=== PATIENT | male | born 1945 | race Caucasian/White ===

== ENCOUNTER 2017-12-28 22:24 | Inpatient (IN) | payer MEDICARE, BC ==
[~2017-12-28 22:24] MED LIST: Glycopyrrolate 0.2 MG/ML 5 ML SYRINGE ONE; Lidocaine 1% PF 5 ML VIAL ONE; PHENYLEPHRINE-NS 100 MCG/ML 10 ML SYRINGE ONE; PROPOFOL 200 MG/20 ML VIAL ONE; Succinylcholine Chloride 20 MG/ML 10 ml SYRINGE FS ONE
--- NOTE | 2017-12-28 22:39 | CT ---
CT HEAD NONCONTRAST 12/28/17 INDICATION: New onset left side weakness. No prior comparison. FINDINGS: There is a moderate sized chronic infarction of the posterior division right MCA. There is a hyperden se right MCA with focal calcification. No hemorrhage, mass effect, midline shift, or ventriculomegaly is seen. There is mild chronic microvascular ischemic disease of the cerebral white matter. IMPRESSION: 1. 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 2. Hyperdense right MCA. 3. Mild chronic microvascular ischemic disease. 4. Telephone call placed to ER physician, Placido Méndez, at 2230 hours, 12/28/17. Code CR POS: [id number]
[2017-12-28 22:40] LABS: #Basophils 0.1 thou/uL (0.0-0.2); #Eosinphils 0.1 thou/uL (0.0-0.7); #Lymphocytes 2.1 thou/uL (1.20-3.40); #Monocytes 0.8 thou/uL (0.11-0.59); %Basophils 0.9 % (0.0-1.0); %Eosinophils 1.5 % (0.0-10.0); %Lymphocytes 26.2 % (21.0-51.0); %Monocytes 9.4 % (0.0-10.0); Mean Corpuscular HGB CONC 33.7 g/dL (32.0-36.0); Mean Corpuscular Hemoglobin 31.9 pg (27.0-31.0); Mean Corpuscular Volume 94.7 fl (80.0-94.0); Mean Platelet Volume 8.1 fL (7.4-10.4); Platelet Count 236 thou/uL (130-400); RBC Distribution Width 11.7 % (11.5-14.5); Red Blood Cell (RBC) Count 4.69 mill/uL (4.70-6.10); White Blood Cell (WBC) Count 8.1 thou/uL (4.8-10.8)
[2017-12-28 22:46] LABS: INR-International Normal Ratio 1.1; PTT 28.5 SEC (22.9-36.1); Prothrombin Time 13.9 SEC (12.0-14.7)
[2017-12-28 22:54] LABS: ALT (SGPT) 13 U/L (8-55); AST (SGOT) 16 U/L (5-34); Albumin 3.8 g/dL (3.4-4.8); Alkaline Phosphatase 80 U/L (40-150); Anion Gap 12 mmol/L (10-20); BUN (Urea Nitrogen) 21 mg/dL (8.4-25.7); Bilirubin, Total 0.5 mg/dL (0.2-1.2); Calc. Creatinine Clearance 0 mL/min (70-130); Calcium 9.9 mg/dL (7.8-10.44); Carbon Dioxide 25 mmol/L (23-31); Chloride 105 mmol/L (98-107); Estimated GFR-MDRD 68; Globulin 2.5 g/dL (2.4-3.5); Glucose 109 mg/dL (80-115); Protein, Total 6.3 g/dL (5.8-8.1); Sodium 138 mmol/L (136-145)
[2017-12-28 22:59] LABS: CKMB 0.9 ng/mL (0-6.6); Troponin I Less than 0.010 ng/mL (< 0.028)
--- NOTE | 2017-12-28 23:08 | CT ---
CTA NECK WITH 3D VOLUME RENDERING CTA HEAD WITH 3D VOLUME RENDERING CTA BRAIN PERFUSION 12/28/17 INDICATION: Left sided weakness. FINDINGS: There is heterogeneity of the contrast bolus. The aortic arch is patent. The great vessels that emana te from the aortic arch are patent. No high grade stenosis of the bilateral subclavian arteries altho ugh there is limited assessment of the left subclavian artery by the adjacent high density streak art ifact from venous contrast. The bilateral common carotid arteries reveal no high grade focal stenosis . There is calcification at the distal left common carotid artery and at the level of each carotid bu lb without significant stenosis. Each cervical ICA is patent. The bilateral terminal carotid arteries reveal peripherally located calcification. There is abruption termination of the proximal aspect of the right MCA with absence of contrast from the level of the M1 segment distally. This does result in diffuse reduced contrast density of the MCA distal cerebral branches. No high grade stenosis of eith er MARIANELA. Region of anterior communicating artery is unremarkable. There is no high grade focal stenos is of the left MCA. There is mild focal narrowing without obvious calcification at the proximal left M1 segment. Small caliber bilateral BUTTER PRODUCTION SUPERVISOR are grossly patent. No high grade stenosis or occlusion of ei ther vertebral artery. Basilar artery is patent. Evaluation of CTA brain perfusion reveals a large region of diminished blood flow, as well as elevate d mean transit time throughout majority of the right cerebral hemisphere. There is preserved blood vo lume within portions of the anterior and posterior division of the right MCA territory, compatible wi th penumbra. IMPRESSION: Occlusion of the right middle cerebral artery, with CTA brain perfusion findings of a penumbra involv ing right MCA territory. Noncontrast CT exam does reveal an area of encephalomalacia localizing to th e posterior division right MCA territory. There are findings of preserved blood volume within the robbie rounding right cerebral hemisphere. Telephone call of findings placed to neurosurgeon, Evaristo Sanchez, at 2245 hours as well as the ER physic Placido lacey. Code CR POS: [facility]
[2017-12-28] MEDS ORDERED: Heparin 10,000 UNITS/1 ML VIAL ONE (23:17)
[2017-12-28] MEDS ORDERED: Fentanyl 100 MCG/2 ML VIAL ONE ×2 (23:32→23:39)
[2017-12-29] MEDS ORDERED: PHENYLEPHRINE-NS 100 MCG/ML 10 ML SYRINGE ONE (00:15)
[2017-12-29] MEDS ORDERED: Phenylephrine HCL 10 MG/ML VIAL ONE (00:16)
[2017-12-29] MEDS ORDERED: niCARdipine 20MG in NaCl 200 ML BAG IVPB PRN (00:25)
[2017-12-29] MEDS ORDERED: Acetaminophen 650 MG Suppository PR PRN (00:25)
[2017-12-29] MEDS ORDERED: Bisacodyl 10 MG SUPP PR PRN (00:25)
[2017-12-29] MEDS ORDERED: Labetalol HCl 100 MG/20 ML VIAL SLOW IVP PRN (00:25)
[2017-12-29] MEDS ORDERED: niCARdipine HCl 25 MG in Sodium Chloride 0.9% 250 ML 240 ML IVPB PRN (00:35)
[2017-12-29] MEDS: Sodium Chloride 0.9% 1,000 ML IV SCH ×2 (01:00→11:24)
[2017-12-29 04:49] LABS: Cardiac Risk 2.8 (Less than 4.5)
--- NOTE | 2017-12-29 06:53 | PRG ---
DATE OF SERVICE: 12/28/17 Mr. Carreno is a 72-year-old gentleman that presented with abrupt onset hemiplegia and dysarthria. He presented to the ER at [facility] where a noncontrast head CT was performed, which was negative for hemorrhage. Subsequent to that time, he had a CT angiogram performed which revealed the presence of thrombus within the right M1 branch of the middle cerebral artery without any evidence for distal filling. He had a CT perfusion study which suggested a large area of penumbra. I had a conversation with the ER doctor and we agreed to administer tPA. The plan is also to bring him back to the construction or leak gang laborer now and perform angiography with mechanical thrombectomy. I had a discussion with the patient's and son and discussed with them the risks, benefits, and alternatives to this procedure. I answered their questions and I believe they were of sound mind and able to provide informed consent. ANÍBAL
--- NOTE | 2017-12-29 07:54 | CT ---
PRELIMINARY REPORT/[facility]/EMERGENCY AFTER HOURS PROCEDURE: Addendum created by Johann Dejesus MD on 12/29/2017 5:51 AM Central Time ([place] & [place]) THIS REPORT CONTAINS FINDINGS THAT MAY BE CRITICAL TO PATIENT CARE. The findings were verbally commun icated via telephone conference with ANGELES PÉREZ at 5:50 AM UPSET OPERATOR on 12/29/2017. The findings were ackn owledged and understood. Initial Report created on 12/29/2017 5:45 AM Central Time ([place] & [place]) EXAM: CT Head Without Intravenous Contrast CLINICAL HISTORY: 72 years old, male; Signs and symptoms; Other: F/u CVA clot removal; Prior surgery; Surgery date: Pos t-operative (0-2 days); Patient HX: Cta br done prior to scanning; Additional info: This is f/u CVA S /P clot removal; Pt had contrast prior for ctabr TECHNIQUE: Axial computed tomography images of the head/brain without intravenous contrast. All CT scans at this facility use one or more dose reduction techniques, viz.: automated exposure control; ma/kV adjustme nt per patient size (including targeted exams where dose is matched to indication; i.e. head); or ite rative reconstruction technique. COMPARISON: CT Brain WO Con 2017-12-28 22:28 FINDINGS: Diffuse cerebral volume loss. Right posterior temporal lobe encephalomalacia. Interval development of hypodensity in the right insula, right anterior inferior frontal lobe and rig ht anterior and mid temporal lobe parenchyma. No intracranial hemorrhage, midline shift or hydrocephalus. Result cisterns are without effacement. Slight asymmetric hyperdensity of the right MCA, unchanged. Atherosclerosis of the intracranial vasculature. Orbits are unremarkable. Paranasal sinuses are clear. Mastoid air cells are clear. Mandibular periapical lucency. No acute fracture. Extra calvarial soft tissues unremarkable. IMPRESSION: Interval development of hypodensities in the right MCA territory as described above most suspicious f or acute ischemia. Thank you for allowing us to participate in the care of your patient. Dictated and Authenticated by: Johann Dejesus MD 12/29/2017 5:45 AM Central Time ([place] & [place]) FINAL REPORT CT HEAD NONCONTRAST: DATE: 12/29/17. TIME: Performed on an emergency basis at 0506 hours. HISTORY: Acute right MCA embolus with clot removal. Followup. FINDINGS: Findings agree with the preliminary report from [facility]. Hyperdense clot within the right MCA is no longer apparent. Subtle loss of casey-white differentiation in the right frontal and tempor al lobes suggests developing ischemia/infarct. POS: CARMELA
--- NOTE | 2017-12-29 13:50 | CON ---
DATE OF CONSULTATION: 12/29/2017 CHIEF COMPLAINT: Acute stroke. HISTORY OF PRESENT ILLNESS: History was obtained both from family and the chart. The patient was in his usual state of health until yesterday afternoon when he developed sudden onset of slurred speech and his stroke-like symptoms began at 2155. He was walking to the restroom and he had sudden onset of left-sided weakness with slurred speech. He did not have any prior difficulties and there is no h istory of any vision problems or sensory symptoms. No seizures were found. The patient was taken to the cath lab tech due to his NIH stroke scale of 26. He had left hemineglect, left facial droop, complet e left upper and lower arm paralysis, and following that, he was taken to the cardiac cath lab tech for in traarterial procedure, and his intraarterial procedure was completed yesterday and the patient has re mained stable overnight, and he is currently in the ICU. His angiogram report was and the patient al so had an head and neck CTA with brain perfusion, which showed occlusion of the right MCA and with CT A perfusion findings of penumbra in the right MCA territory. Dr. Sanchez had completed the procedure, and following the procedure, he was placed in the ICU. PAST MEDICAL HISTORY: The patient has had coronary artery bypass graft and he has coronary artery di sease and hypertension. He also has diabetes. ALLERGIES: No known drug allergies. MEDICATIONS: Prior to admission, he was on Plavix, metformin, Jardiance, atorvastatin, hydrochloroth iazide, glipizide, isosorbide mononitrate, lisinopril, Coreg, and Slo-Niacin. FAMILY HISTORY: Positive for stroke in his mother and coronary artery disease in both parents. SOCIAL HISTORY: Nonsmoker, occasional alcohol. Lives with his family. LABORATORY RESULTS: White count 8.1, hemoglobin 15.0, hematocrit 44.4, platelets 236, sodium 138, po tassium 4.0, chloride 105, bicarbonate 25, BUN 21, creatinine 1.08, AST 16, ALT 13, alkaline phosphat ase 80. Cholesterol 90, triglycerides 44, LDL 49, HDL 32. PT 13.9, INR 1.1, PTT 28.5. CT angiograp hy performed on 12/28/2017 shows occlusion of the right middle cerebral artery with the right CTA bra in perfusion findings of penumbra involving the right MCA territory and noncontrast CT exam does reve al an area of encephalomalacia localizing to the posterior division of the right MCA territory and th ere were findings of preserved blood volume within the surrounding right cerebral hemisphere. PHYSICAL EXAMINATION: VITAL SIGNS: Blood pressure 147/62, heart rate 77, respiratory rate 20, O2 sats 94. GENERAL APPEARANCE: Well-built, well-nourished gentleman, who is lying in bed. HEENT: He has left hemineglect and eyes are deviated to the right in resting position. CHEST: Clear vesicular breathing. CARDIOVASCULAR: S1, S2 heard, no murmurs. ABDOMEN: Soft, nontender. No organomegaly noted. NEUROLOGIC: Higher intellectual functions: Oriented to time, place, person. Cranial nerves II-XII. Fundus examination: Normal visual ojeda. Normal extraocular movements. Resting eye deviation to the right, but extraocular movements are preserved and he is able to cross midline to look to the le ft. Sensory exam: Normal sensation of face bilaterally. Cranial nerve VII: Mild left facial droop and normal hearing bilaterally to finger rub. Normal elevation of palate. Tongue midline. Motor e xam: Bulk normal, tone decreased on the left side. Strength 5/5 on the right side. On the left wilton e, he is able to elevate his left arm against gravity and strength is about 3/5. Left lower extremit y strength is about 3/5 proximal, distal 4/5. Muscle groups tested are iliopsoas, hamstrings, venkata ceps, ankle dorsiflexion, plantar flexion, deltoid, biceps, triceps, wrist extension and flexion, fin dolly extension and flexion bilaterally. Deep tendon reflexes are absent. Sensory normal touch temper ature on the right side. There is hemineglect on the left side and difficult to assess sensation on the left. Cerebellar exam: Normal finger to nose and he cannot perform heel to bourgeois on the right le g due to presence of sheath following his angiogram procedure yesterday. His has some impairment of cerebellar function in the left upper extremity. ASSESSMENT AND PLAN: The patient is a 72-year-old man with risk factors of coronary artery disease, diabetes, hypertension, and she has had a right middle cerebral artery embolic event and he had intra arterial procedure yesterday for this ischemic events due to a NIH stroke scale of 26. Since the pro cedure, he has had a new improvement in his neurological status and his examination shows gaze deviat ion to the right, left face, arm and leg weakness with the left arm weakness at 3/5 and left lower ex tremity weakness 3/5 proximal, distal 4/5. At this time, diagnosis is most consistent with ischemic cerebrovascular accident likely possibilitie s are cardioembolic event. RECOMMENDATIONS: 1. I agree with the addition of aspirin along with Plavix for stroke prophylaxis. 2. Obtain MRI when patient is more stable. 3. Follow acute stroke and TPA protocol and maintain cerebral perfusion pressures and therefore inve stigate cardiac status particularly for any possibility for embolic source. 4. I will have one of our Neurology colleagues to continue to follow up on this patient. 5. Please call me if you have any change in neurological status.
[2017-12-29] MEDS ORDERED: Dextrose 5% in Water 1,000 ML IV PRN (14:11)
[2017-12-29] MEDS ORDERED: HumaLOG 300 UNITS/3 ML VIAL SC PRN (14:11)
[2017-12-29] MEDS ORDERED: Dextrose 50% Abboject 50 ML SYRINGE SLOW IVP PRN (14:11)
--- NOTE | 2017-12-29 14:50 | CON ---
DATE OF CONSULTATION: 12/29/2017 HISTORY OF PRESENT ILLNESS: Mr. Carreno is a 72-year-old male was sleeping on the couch last night. His noticed that he was trying to speak and was unable to. He presented to the emergency room. He had TPA and then a VIVIANE procedure. CT this morning shows a right insular hypodensity in the right anterior frontal lobe, anterior mid temporal lobe parenchyma, hyperdense clot that was seen on the previous imaging study and the right middle cerebral artery is no longer apparent. He is able to verbalize. He started to move his left side. PAST MEDICAL HISTORY: Remarkable for, 1. Bypass surgery. His says probably 17 years ago. 2. History of lipid disorder, on lipid medication. FAMILY HISTORY: Negative for lung disease at an early age. SOCIAL HISTORY: He is a nonsmoker. ALLERGIES: He has no known drug allergies. REVIEW OF SYSTEMS: 10 point system review otherwise negative. He denies pain. He says he is reasonably comfortable, actually surprisingly had no complaints. PHYSICAL EXAMINATION: VITAL SIGNS: Blood pressure 127/57, heart rate 82, respiratory 20, oximetry is 93%-96%. HEENT: Facial asymmetry. He is slightly dysarthric. NECK: Without lymphadenopathy and supple. LUNGS: Clear anteriorly. HEART: Regular rhythm. S1 and S2 are normal. ABDOMEN: Soft and nontender. EXTREMITIES: Without asymmetry. LABORATORY DATA: White count 8.1, hemoglobin 15.0, platelets 236. Electrolytes normal. Renal function was normal. Liver enzymes were normal. Cholesterol 90, LDL was 49, HDL is 32. IMPRESSION: Status post thrombotic cerebrovascular accident after thrombolytics and VIVIANE procedure, improving neurological function. PLAN: Continue critical care unit per TPA protocol. He is not having any airway protection issues at this point in time. Hopefully, bedside swallow will allow us to give him a little ice. This is a 50 minute consult greater than 50% of time spent on the unit coordinating care. ANÍBAL
[2017-12-29] MEDS: Ketorolac Tromethamine 30 MG/ML VIAL IVP PRN (14:56)
--- NOTE | 2017-12-29 16:12 | CON ---
DATE OF CONSULTATION: 12/29/2017 CONSULTING PHYSICIAN: Dr. Sanchez, Neurosurgery. REASON FOR CONSULTATION: Medical management of his hypertension and diabetes. CHIEF COMPLAINTS: Headache and shoulder pain at the time of my evaluation. HISTORY OF PRESENT ILLNESS: The patient is a 72-year-old male who was admitted yesterday t hrough the emergency room after he developed acute ischemic CVA, which presented with slurred speech. The patient was brought to the emergency room. He was treated with tPA for acute CVA and since he did not improve much, Dr. Sanchez took him to the operating room and did retrieval of the clot from the right middle cerebral artery and medical team was asked to start following the patient for medical p roblein. PAST MEDICAL HISTORY: Positive for; 1. Diabetes mellitus type 2. 2. Hypertension. 3. Hyperlipidemia. 4. Coronary artery disease. 5. Cataract, bilateral. PAST SURGICAL HISTORY: CABG. FAMILY HISTORY: Mother had AL and CVA and at the age of 85 and father was 57 when he had AL and he passed. SOCIAL HISTORY: He does not have any history of smoking. Drinks occasionally. He does not use any illicit drugs. MEDICATIONS: Atorvastatin 40 mg at bedtime, carvedilol 37.5 mg twice a day, clopidogrel 75 mg at bed time, Jardiance 25 mg daily, glipizide 10 mg twice a day, hydrochlorothiazide 25 mg daily, isosorbide mononitrate 60 mg daily, lisinopril 20 mg daily, metformin 1000 mg twice a day with XR form and Niac in 500 mg daily. REVIEW OF SYSTEMS: All 14 systems were reviewed and they are negative except for mentioned at HPI, w hich is headache and shoulder pain. ALLERGIES: None. PHYSICAL EXAMINATION: VITAL SIGNS: Blood pressure is 154/65, pulse is 76, respiratory rate is 17 and pulse oximetry is 96% on room air. He is afebrile. HEENT: Head: Atraumatic and normocephalic. Eyes: Pupils are responding to light properly. Extrao cular movements within normal limits. Conjunctivae pinkish. Sclerae nonicteric. Oral mucosa is lissa ewhat dry. NECK: Supple. No lymphadenopathy. Thyroid is not palpable. LUNGS: Clear. HEART: S1 and S2 normal. No S3, no S4, no murmur. He has occasional PVC. ABDOMEN: Soft, nontender and nondistended. Bowel sounds are present. No organomegaly. EXTREMITIES: No clubbing, cyanosis or edema. NEUROLOGIC: He is alert and oriented x4. There are no any sensory deficits. There is a motor defic it in the left upper and left lower extremity, approximately 4/5. Also, he has adiadochokinesia on t he left side. SKIN: No rash or erythema. LABORATORY DATA: White count of 8.1, hemoglobin 15.0, hematocrit 34.4 and platelet count is 236. PT 13.9, INR 1.1, and PTT 28.5. Chemistry within normal limits. Triglycerides 44, cholesterol 90, LDL cholesterol 49, HDL 32. Heart disease risk ratio is 2.8. MICROBIOLOGY: None. IMAGING DATA: The CT angiography showed occlusion of the right middle cerebral artery with CTA brain perfusion findings of penumbra involving the right MCA territory. This was done at midnight last ni ght. CT of the brain, which was done on 12/28 showed; 1. Moderate-sized chronic posterior division, right MCA infarction. 2. Hyperdense right MCA. 3. Mild chronic microvascular ischemic disease. Brain CT, which was done at 0025 showed diffuse cerebral volume loss, right posterior temporal lobe e ncephalomalacia, interval development of hypodensity in the right insula, right anterior inferior fro ntal lobe and right anterior and mid temporal lobe parenchyma. Final report showed hyperdense clot w ithin the right MCA is no longer apparent. Subtle loss of casey-white differentiation in the right fr ontal and temporal lobes suggested developing ischemia/infarction. EKG showed normal sinus rhythm with ventricular rate of 63 with right bundle branch block, which is o ld and specific changes present. IMPRESSION: 1. Acute ischemic/thrombotic cerebrovascular accident in the right middle cerebral artery territory, status post tPA and retrieval of the clot. 2. Diabetes mellitus type 2, controlled. 3. Hypertension. 4. Hyperlipidemia. 5. Coronary artery disease. RECOMMENDATIONS: Apparently, the patient is not in any need for surgery at this point unless there i s some complication. Since there is some blood, which can affect the drainage of CSF, but at this po int, he does not need any surgery per Neurosurgery team. As soon as his 24 hours of the tPA time is over, we will start doing Accu-Cheks on him and we will continue his statin and we will consult Neuro logy for further recommendation in terms of medical treatment of this acute ischemic/thrombotic strok e since the patient was on antiplatelet and agent already before this happened. We will continue his DVT prophylaxis. We will continue his close monitoring. We will check his homocysteine level and h ighly sensitive CRP.
[2017-12-30] MEDS: Ketorolac Tromethamine 30 MG/ML VIAL IVP PRN ×2 (00:05→11:12)
[2017-12-30] MEDS: Sodium Chloride 0.9% 1,000 ML IV SCH ×3 (01:28→22:18)
--- NOTE | 2017-12-30 07:58 | CCL ---
RADIOLOGY PROCEDURE NOTE: Date: 12/28/17 SURGEON: Moses Sanchez M.D. BASKETBALL PLAYER: None. INDICATION: Ischemic stroke. DIAGNOSIS: Right MCA occlusion. PROCEDURE: Diagnostic cerebral angiography with mechanical thrombectomy. ANESTHESIA: General. TECHNIQUE: The patient was brought into the angiogram suite and placed on the table in the supine position. He w as placed under general anesthesia. Both groins were prepped and draped in usual sterile fashion. 1% lidocaine was used to inject the right groin. A 5 Latvian micropuncture set was used to gain access to the right common femoral artery. Using the Seldinger technique, the needle was removed and an 8 Fren ch sheath was placed. An 8 Latvian concentric guide catheter passed over 130 cm diagnostic catheter wh ich was passed over a 0.035 angled Glidewire was then advanced into the aortic arch where the right i nternal carotid artery was selectively catheterized. AP and lateral angiogram was performed which rev ealed complete occlusion of the proximal aspect of the M1 branch of the right middle cerebral artery. A Trevo mechanical thrombectomy device was deployed one time. After deployment, there was restorat ion of flow into the middle cerebral artery branch as well as the M2 branches. There remained some oc clusion of the distal branches of the middle cerebral artery which could not be accessed via mechanical engineering director al thrombectomy. Hopefully, the patient's TPA will render the other ones open over the course of the next few hours. All catheters were then removed. Sheath was sewn in place and given TPA administratio n. The procedure came to an end without known complication. FINDINGS: Cerebral angiography revealed the presence of occlusion of the proximal aspect of the M1 branch of th e right middle cerebral artery. A mechanical thrombectomy was performed, which restored flow into the middle cerebral artery.
[2017-12-30] MEDS ORDERED: Insulin Regular 300 UNITS/3 ML VIAL SC PRN (08:00)
--- NOTE | 2017-12-30 08:29 | PRG ---
DATE OF SERVICE: 12/30/2017 Mr. Carreno remains in the ICU recovering from a mechanical thrombectomy 2 days ago for a right MCA division occlusion. Neurologically, he has made a fairly substantial improvement. He came in flacci d on the left, but is now able to bear weight and take small steps. He has 3/4 weakness of the left arm. His speech is now much clearer than it was before. I believe he will continue to recover. He needs aggressive physical therapy, occupational therapy, a nd likely transition to inpatient rehab. His sheath was removed late last evening and his groin site looks fine. The neurosurgical service will sign off. From my perspective, he can be transitioned t o the Stroke Unit at any time.
[2017-12-30] MEDS ORDERED: Aspirin 300 MG Suppository PR SCH (09:00)
[2017-12-30] MEDS: Enoxaparin Sodium 40 MG/0.4 ML SYRINGE SC SCH (09:45)
--- NOTE | 2017-12-30 12:28 | PRG ---
DATE OF SERVICE: 12/30/2017 Mr. Carreno is in the ICU. He is still interactive. He still continues to improve on the left with his lower extremity and his left upper extremity. His speech is improving. PHYSICAL EXAMINATION: VITAL SIGNS: Blood pressure 153/74, heart rate 67, respiratory rate 23. LUNGS: His lungs are clear. IMPRESSION: Thrombotic cerebrovascular accident status post thrombolytics and a VIVIANE procedure, cli nically improving. PLAN: Continue care.
--- NOTE | 2017-12-30 14:42 | PDOC.PN ---
- Subjective Encounter Start Date: 12/30/17 Encounter Start Time: 14:40 Subjective: Improving with therapy. -: No new complaints -: No acute events overnight. - Objective MAR Reviewed: Yes Vital Signs & Weight: Vital Signs (12 hours) Temp Pulse Pulse Pulse Resp BP BP 12/30/17 10:23 68 66 147/82 H 155/72 H 12/30/17 08:00 98.7 F 68 20 12/30/17 04:00 98.8 F Pulse Ox 12/30/17 10:23 12/30/17 08:00 98 12/30/17 04:00 Weight Admit Weight 196 lb Weight 196 lb 3.382 oz Most Recent Monitor Data Heart Rate from ECG 63 NIBP 140/70 NIBP BP-Mean 107 Respiration from ECG 19 SpO2 96 I&O: 12/29/17 12/30/17 12/31/17 06:59 06:59 06:59 Intake Total 290 2220 Output Total 400 1700 200 Balance -110 520 -200 Result Diagrams: 12/28/17 22:27 12/28/17 22:27 Phys Exam - Physical Examination Constitutional: NAD HEENT: PERRLA, moist MMs, sclera anicteric Neck: supple, full ROM Respiratory: no wheezing, no rales, no rhonchi, clear to auscultation bilateral Cardiovascular: RRR, no significant murmur, no rub Gastrointestinal: soft, non-tender, no distention, positive bowel sounds Musculoskeletal: no edema, pulses present L hemiparesis Psychiatric: normal affect Skin: no rash, normal turgor Dx/Plan (1) Cerebrovascular accident (CVA) due to thrombosis Code(s): I63.9 - CEREBRAL INFARCTION, UNSPECIFIED Status: Acute Qualifiers: Precerebral and cerebral artery: middle cerebral artery Laterality of affected vessel: right Qualified Code(s): I63.311 - Cerebral infarction due to thrombosis of right middle cerebral artery Comment: Improving with therapy. Will continue PT/OOT/Speech therapy. Diet advanced 12/30 (2) HTN (hypertension) Code(s): I10 - ESSENTIAL (PRIMARY) HYPERTENSION Status: Acute Qualifiers: Hypertension type: essential hypertension Qualified Code(s): I10 - Essential (primary) hypertension Comment: Start carvedilol, lisinopril and HCTZ (3) DM2 (diabetes mellitus, type 2) Status: Acute Qualifiers: Diabetes mellitus complication status: without complication Diabetes mellitus assisted insulin use: without assisted use Qualified Code(s): E11.9 - Type 2 diabetes mellitus without complications Comment: Fair control. Restart home oral hypoglycemics. SSI, diabetic diet and hypoglycemia protocol. (4) HLD (hyperlipidemia) Code(s): E78.5 - HYPERLIPIDEMIA, UNSPECIFIED Status: Acute Qualifiers: Hyperlipidemia type: unspecified Qualified Code(s): E78.5 - Hyperlipidemia , unspecified Comment: Continue Statins. (5) CAD (coronary artery disease) Code(s): I25.10 - ATHSCL HEART DISEASE OF [place] CORONARY ARTERY W/O ANG PCTRS Status: Acute Qualifiers: Coronary Disease-Associated Artery/Lesion type: unspecified vessel or lesion type [place] vs. transplanted heart: [place] heart Associated angina: without angina Qualified Code(s): I25.10 - Atherosclerotic heart disease of [place] coronary artery without angina pectoris Comment: Continue ASA, statin, lisinopril and coreg, as well as IMDUR - Plan cont current plan of care, PT/OT, delinquency prevention social worker, speech therapy, DVT proph w/ SCDs PT/OT and FIRE BEHAVIOR ANALYST -: Start PO medications -: Transfer to Stroke unit once BP stable. * .
[2017-12-30] MEDS ORDERED: metFORMIN XR 500 MG TAB PO SCH (16:30)
[2017-12-30] MEDS: Carvedilol 25 MG TAB PO SCH (16:32)
[2017-12-30] MEDS ORDERED: glipiZIDE 10 MG TAB PO SCH (21:00)
[2017-12-30] MEDS: Atorvastatin Calcium 40 MG TAB PO SCH (21:35)
[2017-12-31 04:19] LABS: #Eosinphils 0.1 thou/uL (0.0-0.7); #Lymphocytes 1.8 thou/uL (1.20-3.40); #Monocytes 0.7 thou/uL (0.11-0.59); #Neutrophils 6.3 thou/uL (1.40-6.50); %Basophils 0.5 % (0.0-1.0); %Eosinophils 0.8 % (0.0-10.0); %Lymphocytes 20.1 % (21.0-51.0); %Neutrophils 70.6 % (42.0-75.0); Hemoglobin 14.6 g/dL (14.0-18.0); Mean Corpuscular HGB CONC 33.7 g/dL (32.0-36.0); Mean Corpuscular Hemoglobin 32.1 pg (27.0-31.0); Mean Corpuscular Volume 95.3 fl (80.0-94.0); Mean Platelet Volume 7.8 fL (7.4-10.4); Platelet Count 222 thou/uL (130-400); RBC Distribution Width 11.7 % (11.5-14.5); Red Blood Cell (RBC) Count 4.54 mill/uL (4.70-6.10)
[2017-12-31 04:39] LABS: Anion Gap 7 mmol/L (10-20); BUN (Urea Nitrogen) 23 mg/dL (8.4-25.7); CRP (Inflammatory) Less than 0.50 mg/dL (= or < 0.5); Calc. Creatinine Clearance 101 mL/min (70-130); Calcium 9.2 mg/dL (7.8-10.44); Carbon Dioxide 25 mmol/L (23-31); Chloride 112 mmol/L (98-107); Estimated GFR-MDRD 88; Glucose 90 mg/dL (80-115); Potassium 3.8 mmol/L (3.5-5.1); Sodium 140 mmol/L (136-145)
[2017-12-31] MEDS: Carvedilol 25 MG TAB PO SCH (06:30)
[2017-12-31] MEDS: Aspirin 325 MG TAB PO SCH (09:21)
[2017-12-31] MEDS: Lisinopril 20 MG TAB PO SCH (09:21)
[2017-12-31] MEDS: Enoxaparin Sodium 40 MG/0.4 ML SYRINGE SC SCH (09:21)
[2017-12-31] MEDS: Hydrochlorothiazide 25 MG TAB PO SCH (09:21)
--- NOTE | 2017-12-31 11:19 | PDOC.PN ---
- Subjective Encounter Start Date: 12/31/17 Encounter Start Time: 11:20 Subjective: No complaints. Continues to recover motor function. -: Diet started and being advanced. -: No acute events overnight. - Objective MAR Reviewed: Yes Vital Signs & Weight: Vital Signs (12 hours) Temp Pulse Resp BP 12/31/17 09:21 150/60 H 12/31/17 08:00 97.7 F 74 19 12/31/17 04:00 98.5 F 12/31/17 00:00 98.8 F Weight Admit Weight 196 lb Weight 196 lb 3.382 oz Most Recent Monitor Data Heart Rate from ECG 70 NIBP 118/63 NIBP BP-Mean 68 Respiration from ECG 20 SpO2 96 I&O: 12/30/17 12/31/17 01/01/18 06:59 06:59 06:59 Intake Total 2220 2242 240 Output Total 1700 1750 300 Balance 520 492 -60 Result Diagrams: 12/31/17 04:06 12/31/17 04:06 Additional Labs: Accuchecks 12/31/17 12/30/17 12/30/17 08:26 22:15 15:46 POC Glucose 97 116 H 81 Phys Exam - Physical Examination Constitutional: NAD HEENT: PERRLA, moist MMs, sclera anicteric Neck: supple, full ROM Respiratory: no wheezing, no rales, no rhonchi, clear to auscultation bilateral Cardiovascular: RRR, no significant murmur, no rub Gastrointestinal: soft, non-tender, no distention, positive bowel sounds Musculoskeletal: no edema, pulses present strength 4/5 L extremities; 5/5 on the R Neurological: non-focal, moves all 4 limbs Psychiatric: normal affect, A&O x 3 Skin: no rash, normal turgor Dx/Plan (1) Cerebrovascular accident (CVA) due to thrombosis Code(s): I63.9 - CEREBRAL INFARCTION, UNSPECIFIED Status: Acute Qualifiers: Precerebral and cerebral artery: middle cerebral artery Laterality of affected vessel: right Qualified Code(s): I63.311 - Cerebral infarction due to thrombosis of right middle cerebral artery Comment: Improving with therapy. Will continue PT/OT/Speech therapy. (2) HTN (hypertension) Code(s): I10 - ESSENTIAL (PRIMARY) HYPERTENSION Status: Acute Qualifiers: Hypertension type: essential hypertension Qualified Code(s): I10 - Essential (primary) hypertension Comment: Continue carvedilol, lisinopril and HCTZ (3) DM2 (diabetes mellitus, type 2) Status: Acute Qualifiers: Diabetes mellitus complication status: without complication Diabetes mellitus custodial insulin use: without custodial use Qualified Code(s): E11.9 - Type 2 diabetes mellitus without complications Comment: Fair control. Continue home oral hypoglycemics. SSI, diabetic diet and hypoglycemia protocol. (4) HLD (hyperlipidemia) Code(s): E78.5 - HYPERLIPIDEMIA, UNSPECIFIED Status: Acute Qualifiers: Hyperlipidemia type: unspecified Qualified Code(s): E78.5 - Hyperlipidemia , unspecified Comment: Continue Statins. (5) CAD (coronary artery disease) Code(s): I25.10 - ATHSCL HEART DISEASE OF [place] CORONARY ARTERY W/O ANG PCTRS Status: Acute Qualifiers: Coronary Disease-Associated Artery/Lesion type: unspecified vessel or lesion type [place] vs. transplanted heart: [place] heart Associated angina: without angina Qualified Code(s): I25.10 - Atherosclerotic heart disease of [place] coronary artery without angina pectoris Comment: Continue ASA, statin, lisinopril and coreg, IMDUR - Plan cont current plan of care, PT/OT, speech therapy, DVT proph w/lovenox Stable for transfer to stroke unit * .
[2017-12-31] MEDS: Ketorolac Tromethamine 30 MG/ML VIAL IVP PRN (12:10)
[2017-12-31] MEDS: Sodium Chloride 0.9% 1,000 ML IV SCH (12:13)
--- NOTE | 2017-12-31 12:53 | PRG ---
DATE OF SERVICE: 12/31/2017 SUBJECTIVE: Cecilio Carreno is making dramatic progress. OBJECTIVE: VITAL SIGNS: His heart rate in the 60s. Blood pressure 120/58, respiratory rate 20s. LUNGS: Clear. HEART: Regular rhythm. ABDOMEN: Soft. LABORATORY DATA: White count 9, hemoglobin 14.6, platelets 222. Sodium 140, potassium 3.8, chloride 112, bicarbonate 25, BUN 23, creatinine 0.86. IMPRESSION: Thrombotic cerebrovascular accident, improved after TPA and VIVIANE procedure. He is yasmani ng dramatic progress each day. He is stable to move out of the Critical Care Unit to the stroke unit in my opinion. ADDENDUM: Mr. Carreno's heart rate is dropping into the 40s so his Coreg dose will be decreased, it will not b e discontinued.
--- NOTE | 2017-12-31 16:08 | EKG ---
Test Reason : Blood Pressure : / mmHG Vent. Rate : 054 BPM Atrial Rate : 054 BPM P-R Int : 192 ms QRS Dur : 146 ms QT Int : 452 ms P-R-T Axes : 059 -33 008 degrees QTc Int : 428 ms Sinus bradycardia Left axis deviation Right bundle branch block Inferior infarct , age undetermined cannot be excluded Abnormal ECG Confirmed by DARIAN LOMBARDI ([id number]) on 12/31/2017 4:07:47 PM Referred By: LUNA Confirmed By:DARIAN LOMBARDI
[2017-12-31] MEDS: Carvedilol 6.25 MG TAB PO SCH (17:53)
--- NOTE | 2017-12-31 18:28 | CON ---
DATE OF CONSULTATION: 12/31/2017 REASON FOR CONSULTATION: Bradycardia and recent CVA. HISTORY OF PRESENT ILLNESS: Mr. Carreno is a very pleasant 72-year-old gentleman who is a patient o f Dr. Clement Maharaj. He recently presented with a CVA. He had TPA and VIVIANE procedure. His symptom s have markedly improved shortly thereafter per his account. He has no previous history of unde rlying atrial fibrillation. He has been on high dose beta andrew therapy as an outpatient. PAST MEDICAL HISTORY: CAD status post bypass surgery, hyperlipidemia, diabetes mellitus, hypertensio n, osteoarthritis, bypass surgery in 1996. ALLERGIES: None. HOME MEDICATIONS: Include Invokana, glipizide, Slo-Niacin, metformin, isosorbide, lisinopril, Plavix , Lipitor, hydrochlorothiazide, carvedilol 37.5 mg 1 p.o. b.i.d. REVIEW OF SYSTEMS: Ten point review of systems is reviewed and as above otherwise negative. PHYSICAL EXAMINATION: GENERAL: Patient is a pleasant male who is in no acute distress. The patient appears his stated age . VITAL SIGNS: Blood pressure 112/60, pulse 57, temperature afebrile. NEUROLOGIC: The patient is alert and oriented times 3. Right upper and lower extremities with mild weakness. HEENT: Sclerae without icterus. Mouth has moist mucous membranes with normal pallor. NECK: No JVD. Carotid upstroke brisk. No bruits bilaterally. LUNGS: Clear to auscultation with unlabored respirations. BACK: No scoliosis or kyphosis. CARDIAC: Regular rate and rhythm with normal S1 and S2. No S3 or S4 noted. No significant rubs, mu rmurs, thrills, or gallops noted throughout the precordium. PMI is not displaced. There is no paola ternal heave. ABDOMEN: Soft, nontender, nondistended. No peritoneal signs present. No hepatosplenomegaly. No ab normal striae. EXTREMITIES: 2+ femoral and 2+ dorsalis pedis pulses. No cyanosis, clubbing, or edema. SKIN: No gross abnormalities. PERTINENT LABS: Hemoglobin 14.6, creatinine 0.86. IMPRESSION: 1. Bradycardia. 2. Recent cerebrovascular accident. 3. Coronary artery disease. 4. Status post bypass surgery. RECOMMENDATIONS: Bradycardia, likely related to beta andrew therapy. It has been decreased appropr iately to 12.5 mg 1 p.o. b.i.d. We will further decrease it to 6.25 one p.o. b.i.d. We will continu e to monitor. Other concerns are source of his embolic event. This may have been cardiac in origin. His LVEF appears normal on recent echo. He may have paroxysmal atrial fibrillation. We would cons ider an outpatient 3-week event recorder versus implantable loop recorder. We will leave it to the d iscretion of Dr. Clement Maharaj.
--- NOTE | 2017-12-31 20:15 | CON ---
DATE OF CONSULTATION: 12/31/2017 CONSULTING PHYSICIAN: Hospitalist Service. IMPRESSION: 1. Right middle cerebral artery stroke with improving left-sided weakness. 2. Hypertension. 3. Diabetes. 4. Hyperlipidemia. 5. Coronary artery disease. 6. Plavix failure. PLAN: 1. Add aspirin to his current regimen. 2. Determine whether inpatient rehab is necessary. HISTORY OF PRESENT ILLNESS: Mr. Carreno is a 72-year-old gentleman who presented with acute left-si ded weakness. CTA revealed evidence of right MCA occlusion. His carotids were clear. Dr. Sanchez too k him to the laboratory [facility] and did mechanical thrombectomy on him. His symptoms are steadily improving. His echocardiogram showed an ejection fraction of 55%-60%. He was followed by Dr. Maharaj for his c ardiac care. He was switched over to Plavix a few months ago. He was on Effient. Prior to this, he had been on aspirin in the past. He is currently taking a statin. PAST MEDICAL HISTORY: As listed above. ALLERGIES: None. SOCIAL HISTORY: No tobacco or alcohol use. FAMILY HISTORY: Noncontributory. REVIEW OF SYSTEMS: No complaint of headache, nausea, vomiting, vertigo, chest pain, shortness of kiana ath. PHYSICAL EXAMINATION: GENERAL: He is a healthy appearing elderly gentleman sitting in a chair, in no distress. VITAL SIGNS: Stable. He has been afebrile. HEENT: Pupils equal and reactive. Conjunctivae clear. Oropharynx clear. NECK: Supple. EXTREMITIES: No cyanosis. NEUROLOGIC: He is alert and cooperative. His speech is fluent with minimally dysarthric quality. C ranial nerves were notable for a slight left facial droop. There is some subjective decreased sensat ion in the lower face on the left side. Motor exam showed antigravity strength in the left arm, but clumsy movements in the hand. Left leg had good antigravity strength. He could walk independently. Sensation in the extremities were intact. No abnormal movements were seen. Imaging was reviewed. SUMMARY: This is a 72-year-old gentleman with thrombotic stroke. He is improving after mechanical t hrombectomy. He was on Plavix; therefore, I would add aspirin. He seems to be likely to be discharg ed home for outpatient therapy.
[2017-12-31] MEDS: Atorvastatin Calcium 40 MG TAB PO SCH (22:12)
[2018-01-01] MEDS: Sodium Chloride 0.9% 1,000 ML IV SCH (04:41)
[2018-01-01] MEDS: Ketorolac Tromethamine 30 MG/ML VIAL IVP PRN (04:41)
[2018-01-01 05:31] LABS: #Eosinphils 0.1 thou/uL (0.0-0.7); #Lymphocytes 1.4 thou/uL (1.20-3.40); #Monocytes 0.7 thou/uL (0.11-0.59); #Neutrophils 5.2 thou/uL (1.40-6.50); %Basophils 0.6 % (0.0-1.0); %Eosinophils 1.7 % (0.0-10.0); %Monocytes 9.4 % (0.0-10.0); %Neutrophils 69.3 % (42.0-75.0); Hemoglobin 13.9 g/dL (14.0-18.0); Mean Corpuscular HGB CONC 33.2 g/dL (32.0-36.0); Mean Corpuscular Hemoglobin 31.6 pg (27.0-31.0); Mean Corpuscular Volume 95.1 fl (80.0-94.0); Mean Platelet Volume 7.9 fL (7.4-10.4); Platelet Count 216 thou/uL (130-400); RBC Distribution Width 11.5 % (11.5-14.5); Red Blood Cell (RBC) Count 4.41 mill/uL (4.70-6.10); White Blood Cell (WBC) Count 7.5 thou/uL (4.8-10.8)
[2018-01-01 05:41] LABS: Anion Gap 10 mmol/L (10-20); BUN (Urea Nitrogen) 16 mg/dL (8.4-25.7); Calc. Creatinine Clearance 117 mL/min (70-130); Calcium 9.3 mg/dL (7.8-10.44); Carbon Dioxide 25 mmol/L (23-31); Chloride 109 mmol/L (98-107); Estimated GFR-MDRD Greater than 90; Glucose 100 mg/dL (80-115); Potassium 3.6 mmol/L (3.5-5.1); Sodium 140 mmol/L (136-145)
[2018-01-01] MEDS: Carvedilol 6.25 MG TAB PO SCH ×2 (08:32→16:42)
[2018-01-01] MEDS: Enoxaparin Sodium 40 MG/0.4 ML SYRINGE SC SCH (09:54)
[2018-01-01] MEDS: Aspirin 325 MG TAB PO SCH (09:54)
[2018-01-01] MEDS: Lisinopril 20 MG TAB PO SCH ×2 (09:56→19:20)
[2018-01-01] MEDS: Hydrochlorothiazide 25 MG TAB PO SCH (09:56)
[2018-01-01] MEDS ORDERED: Carvedilol 6.25 MG TAB PO SCH (11:15)
--- NOTE | 2018-01-01 12:39 | PDOC.PN ---
- Subjective Encounter Start Date: 01/01/18 Encounter Start Time: 12:39 Subjective: No new complaints. Has been ambulating -: No acute events overnight - Objective Vital Signs & Weight: Vital Signs (12 hours) Temp Pulse Pulse Pulse Resp BP BP 01/01/18 11:44 98 F 57 L 20 01/01/18 11:18 167/94 H 01/01/18 09:56 167/94 H 01/01/18 08:47 50 L 57 L 143/70 H 01/01/18 08:32 167/94 H 01/01/18 08:00 98.6 F 56 L 20 01/01/18 04:00 98.2 F 58 L 16 01/01/18 02:35 BP BP Pulse Ox 01/01/18 11:44 121/60 96 01/01/18 11:18 01/01/18 09:56 01/01/18 08:47 170/86 H 01/01/18 08:32 01/01/18 08:00 167/94 H 95 01/01/18 04:00 176/81 H 94 L 01/01/18 02:35 95 Weight Admit Weight 196 lb Weight 218 lb 3.2 oz Most Recent Monitor Data Heart Rate from ECG 65 NIBP 120/58 NIBP BP-Mean 87 Respiration from ECG 22 SpO2 96 I&O: 12/31/17 01/01/18 01/02/18 06:59 06:59 06:59 Intake Total 2242 3028 Output Total 1750 2350 Balance 492 678 Result Diagrams: 01/01/18 05:18 01/01/18 05:18 Additional Labs: Accuchecks 01/01/18 01/01/18 12/31/17 12:01 06:27 21:10 POC Glucose 110 110 131 H 12/31/17 16:55 POC Glucose 154 H Phys Exam - Physical Examination Constitutional: NAD HEENT: PERRLA, moist MMs, sclera anicteric Neck: no JVD, supple, full ROM Respiratory: no wheezing, no rales, no rhonchi, clear to auscultation bilateral Cardiovascular: RRR, no significant murmur, no rub Gastrointestinal: soft, non-tender, no distention, positive bowel sounds Musculoskeletal: no edema, pulses present Neurological: non-focal, normal sensation Psychiatric: normal affect, A&O x 3 Skin: no rash, normal turgor Dx/Plan (1) Cerebrovascular accident (CVA) due to thrombosis Code(s): I63.9 - CEREBRAL INFARCTION, UNSPECIFIED Status: Acute Qualifiers: Precerebral and cerebral artery: middle cerebral artery Laterality of affected vessel: right Qualified Code(s): I63.311 - Cerebral infarction due to thrombosis of right middle cerebral artery Comment: Continues to improve with therapy. Will continue PT/OT/Speech therapy, ASA and Statin. (2) HTN (hypertension) Code(s): I10 - ESSENTIAL (PRIMARY) HYPERTENSION Status: Acute Qualifiers: Hypertension type: essential hypertension Qualified Code(s): I10 - Essential (primary) hypertension Comment: Continue carvedilol, lisinopril and HCTZ (3) DM2 (diabetes mellitus, type 2) Status: Acute Qualifiers: Diabetes mellitus complication status: without complication Diabetes mellitus fpc insulin use: without fpc use Qualified Code(s): E11.9 - Type 2 diabetes mellitus without complications Comment: Controlled. Continue home oral hypoglycemics. SSI, diabetic diet and hypoglycemia protocol. (4) HLD (hyperlipidemia) Code(s): E78.5 - HYPERLIPIDEMIA, UNSPECIFIED Status: Acute Qualifiers: Hyperlipidemia type: unspecified Qualified Code(s): E78.5 - Hyperlipidemia , unspecified Comment: Continue Statins. (5) CAD (coronary artery disease) Code(s): I25.10 - ATHSCL HEART DISEASE OF [place] CORONARY ARTERY W/O ANG PCTRS Status: Acute Qualifiers: Coronary Disease-Associated Artery/Lesion type: unspecified vessel or lesion type [place] vs. transplanted heart: [place] heart Associated angina: without angina Qualified Code(s): I25.10 - Atherosclerotic heart disease of [place] coronary artery without angina pectoris Plan: Stable, chest pain free Comment: Continue ASA, statin, lisinopril and coreg, IMDUR - Plan cont current plan of care, plan discussed w/ family, PT/OT, speech therapy, respiratory therapy Medically ready for discharge to SNF, rehab or home once PT/OT make recs. * .
[2018-01-01] MEDS: Atorvastatin Calcium 40 MG TAB PO SCH (21:21)
[2018-01-02 05:05] LABS: #Eosinphils 0.1 thou/uL (0.0-0.7); #Lymphocytes 1.6 thou/uL (1.20-3.40); #Monocytes 0.8 thou/uL (0.11-0.59); #Neutrophils 5.2 thou/uL (1.40-6.50); %Basophils 0.2 % (0.0-1.0); %Eosinophils 1.6 % (0.0-10.0); %Lymphocytes 20.9 % (21.0-51.0); %Monocytes 9.7 % (0.0-10.0); %Neutrophils 67.7 % (42.0-75.0); Hemoglobin 14.2 g/dL (14.0-18.0); Mean Corpuscular HGB CONC 33.6 g/dL (32.0-36.0); Mean Corpuscular Hemoglobin 31.8 pg (27.0-31.0); Mean Corpuscular Volume 94.7 fl (80.0-94.0); Mean Platelet Volume 7.7 fL (7.4-10.4); Platelet Count 212 thou/uL (130-400); RBC Distribution Width 11.5 % (11.5-14.5); Red Blood Cell (RBC) Count 4.47 mill/uL (4.70-6.10); White Blood Cell (WBC) Count 7.7 thou/uL (4.8-10.8)
[2018-01-02 05:14] LABS: Anion Gap 8 mmol/L (10-20); BUN (Urea Nitrogen) 13 mg/dL (8.4-25.7); Calc. Creatinine Clearance 107 mL/min (70-130); Calcium 9.6 mg/dL (7.8-10.44); Carbon Dioxide 28 mmol/L (23-31); Chloride 108 mmol/L (98-107); Estimated GFR-MDRD 85; Glucose 101 mg/dL (80-115); Potassium 3.8 mmol/L (3.5-5.1); Sodium 140 mmol/L (136-145)
[2018-01-02] MEDS: Aspirin 325 MG TAB PO SCH (08:54)
[2018-01-02] MEDS: Hydrochlorothiazide 25 MG TAB PO SCH (08:54)
[2018-01-02] MEDS: Carvedilol 6.25 MG TAB PO SCH ×2 (08:54→17:25)
[2018-01-02] MEDS: Enoxaparin Sodium 40 MG/0.4 ML SYRINGE SC SCH (08:55)
[2018-01-02] MEDS: Lisinopril 20 MG TAB PO SCH (08:55)
[2018-01-02] MEDS ORDERED: Lidocaine 1% w/Epinephrine 1:100K 30 ML VIAL ONE (11:46)
--- NOTE | 2018-01-02 12:07 | RAD ---
MODIFIED BARIUM SWALLOW IN THE PRESENCE OF SPEECH THERAPIST: HISTORY: Dysphagia following cerebral infarction, feeding difficulties. FINDINGS: No laryngeal penetration, aspiration, or persistent pooling of contrast in the vallecula or piriform sinuses is seen. The residual clears with subsequent swallowing. Please see recommendations of the speech therapist for further management. POS: CARMELA
--- NOTE | 2018-01-02 13:16 | PDOC.PN ---
- Subjective Encounter Start Date: 01/02/18 Encounter Start Time: 13:14 Subjective: No complaints. DOing well and has been ambulating -: No acute events overnight - Objective MAR Reviewed: Yes Vital Signs & Weight: Vital Signs (12 hours) Temp Pulse Pulse Resp BP BP BP 01/02/18 11:35 97.5 F L 57 L 18 128/68 01/02/18 08:55 183/84 H 01/02/18 08:54 183/84 H 01/02/18 08:20 76 129/65 01/02/18 07:20 98.9 F 59 L 16 01/02/18 07:05 97.8 F 65 18 183/84 H 01/02/18 03:12 98.9 F 59 L 16 174/85 H Pulse Ox 01/02/18 11:35 95 01/02/18 08:55 01/02/18 08:54 01/02/18 08:20 01/02/18 07:20 95 01/02/18 07:05 94 L 01/02/18 03:12 95 Weight Admit Weight 196 lb Weight 216 lb 14.4 oz Most Recent Monitor Data Heart Rate from ECG 65 NIBP 120/58 NIBP BP-Mean 87 Respiration from ECG 22 SpO2 96 I&O: 01/01/18 01/02/18 01/03/18 06:59 06:59 06:59 Intake Total 3028 1110 300 Output Total 2350 1330 400 Balance 678 -220 -100 Result Diagrams: 01/02/18 04:53 01/02/18 04:53 Additional Labs: Accuchecks 01/02/18 01/01/18 01/01/18 05:37 20:42 16:40 POC Glucose 93 156 H 132 H Phys Exam - Physical Examination Constitutional: NAD HEENT: PERRLA, moist MMs, sclera anicteric Neck: supple, full ROM Respiratory: no wheezing, no rales, no rhonchi, clear to auscultation bilateral Cardiovascular: RRR, no significant murmur, no rub Gastrointestinal: soft, non-tender, no distention, positive bowel sounds Musculoskeletal: no edema, pulses present Neurological: non-focal, moves all 4 limbs Psychiatric: normal affect, A&O x 3 Skin: no rash, normal turgor Dx/Plan (1) Cerebrovascular accident (CVA) due to thrombosis Code(s): I63.9 - CEREBRAL INFARCTION, UNSPECIFIED Status: Acute Qualifiers: Precerebral and cerebral artery: middle cerebral artery Laterality of affected vessel: right Qualified Code(s): I63.311 - Cerebral infarction due to thrombosis of right middle cerebral artery Comment: Continues to improve with therapy. Will continue PT/OT/Speech therapy, ASA and Statin. (2) HTN (hypertension) Code(s): I10 - ESSENTIAL (PRIMARY) HYPERTENSION Status: Acute Qualifiers: Hypertension type: essential hypertension Qualified Code(s): I10 - Essential (primary) hypertension Comment: Continue carvedilol, lisinopril and HCTZ (3) DM2 (diabetes mellitus, type 2) Status: Acute Qualifiers: Diabetes mellitus complication status: without complication Diabetes mellitus retirement insulin use: without retirement use Qualified Code(s): E11.9 - Type 2 diabetes mellitus without complications Comment: Controlled. Continue home oral hypoglycemics. SSI, diabetic diet and hypoglycemia protocol. (4) HLD (hyperlipidemia) Code(s): E78.5 - HYPERLIPIDEMIA, UNSPECIFIED Status: Acute Qualifiers: Hyperlipidemia type: unspecified Qualified Code(s): E78.5 - Hyperlipidemia , unspecified Plan: Continue Statins. Comment: Continue Statins. (5) CAD (coronary artery disease) Code(s): I25.10 - ATHSCL HEART DISEASE OF [place] CORONARY ARTERY W/O ANG PCTRS Status: Acute Qualifiers: Coronary Disease-Associated Artery/Lesion type: unspecified vessel or lesion type [place] vs. transplanted heart: [place] heart Associated angina: without angina Qualified Code(s): I25.10 - Atherosclerotic heart disease of [place] coronary artery without angina pectoris Comment: Continue ASA, statin, lisinopril and coreg, IMDUR - Plan cont current plan of care, PT/OT, clinical social worker * .
[2018-01-02 14:51] VITALS: BMI 29.4
[2018-01-02 15:53] VITALS: TEMP 98.2
[2018-01-02 17:25] VITALS: BP 128/68
--- NOTE | 2018-01-02 19:49 | DIS ---
DATE OF ADMISSION: 12/28/2017 DATE OF DISCHARGE: 01/02/2018 DISCHARGE DIAGNOSES: Cerebrovascular accident due to thrombosis, hypertension, type 2 diabetes jennifer oneal, hyperlipidemia, coronary artery disease. HOSPITAL COURSE: This is a 72-year-old male who presented to the emergency room with abrupt onset he miplegia and dysarthria. He was at the ER at [place], where a noncontrast head CT was performed, which was negative for hemorrhage. Subsequent to that time, he had a CT angiogram performed, which r evealed the presence of a thrombus within the right M1 branch of the middle cerebral artery without a ny evidence of distal phalanx. He had a CT perfusion study which suggested a large area of penumbra. Discussion was had with the ER physicians and the patient's family decided to administer TPA. He w as then planned to take him to the systems testing laboratory technician and perform angiography, which had mechanical thrombectom y. The patient tolerated the procedure well. He was started on physical, occupational, and speech t herapy with marked improvement. He was able to ambulate with some assistance while on admission. Th e plan was then to transfer him to a rehab facility to continue his rehabilitation. PHYSICAL EXAMINATION: GENERAL: He was examined on the day of discharge. VITAL SIGNS: Temperature 97.5 degree Fahrenheit, pulse 57, respiratory rate 18, oxygen saturation 95 % on room air, and blood pressure 128/68. LABORATORY DATA: WBC 7.7, hemoglobin 14.2, platelets 212. Sodium 140, potassium 3.8, chloride 108, carbon dioxide 28, anion gap 8, BUN 13, creatinine 0.89, glucose 85, calcium 9.6. DISCHARGE MEDICATIONS: Aspirin 325 mg daily, carvedilol 6.25 mg b.i.d., metformin 1000 mg b.i.d., gl ipizide 10 mg daily, lisinopril 20 mg daily, isosorbide mononitrate 60 mg daily, hydrochlorothiazide 25 mg daily, empagliflozin 25 mg daily, atorvastatin 20 mg at bedtime, niacin 50 mg daily. IMAGING: Brain CT, last on 12/29/2017 and shows hyperdense clots that was within the right MCA was n o longer apparent, subtle loss of casey-white differentiation in the right frontal and temporal lobes, which suggest developing ischemia/infarct. Echocardiogram: EF 50%-60%, normal size left atrium, mi ld MR, mild TR. No thrombus noted in cardiac chambers. clinical laboratory director report refer to physician's documen jcion. CONSULTATIONS: Cardiology, Neurology, Pulmonology. PROCEDURES: As stated in HPI/hospital course. DIET: Heart healthy, diabetic. CONDITION AT DISCHARGE: Stable and improved. ACTIVITY: To resume as tolerated and as directed by PT/OT and speech therapy. HEALTH CARE GOALS: To follow up with primary care physician within 1 week of discharge. He is also to have a followup with Cardiology soon after discharge. Discharge time 65 minutes including chart review and documentation.
--- NOTE | 2018-01-04 17:05 | EKG ---
Test Reason : Blood Pressure : / mmHG Vent. Rate : 063 BPM Atrial Rate : 063 BPM P-R Int : 192 ms QRS Dur : 148 ms QT Int : 418 ms P-R-T Axes : 073 081 013 degrees QTc Int : 427 ms Normal sinus rhythm Right bundle branch block Inferior infarct , age undetermined Abnormal ECG Confirmed by ALEJANDRA MAX D.O. ([id number]), avid editor SABRINA FERRO ([id number]) on 01/04/2018 5:04:24 PM Referred By: Confirmed By:ALEJANDRA MAX D.O.
== END 2018-01-02 20:28 | DRG 24 ==
LOC: ERS 22:24 → SURG A 23:00 → CCU 12-29 00:24 → 2SE 12-31 14:03
PROVIDERS: ADMIT Neurological Surgery; ATTEND Internal Medicine
PROC: 03CG3ZZ Extirpation of Matter from Intracranial Artery, Percutaneous Approach (ICD-10-PCS; principal; 2017-12-28)
PROC: B31R1ZZ Fluoroscopy of Intracranial Arteries using Low Osmolar Contrast (ICD-10-PCS; 2017-12-28)
PROC: 3E03317 Introduction of Other Thrombolytic into Peripheral Vein, Percutaneous Approach (ICD-10-PCS; 2017-12-28)
PROC: 0JH602Z Insertion of Monitoring Device into Chest Subcutaneous Tissue and Fascia, Open Approach (ICD-10-PCS; 2018-01-02)
DX: I63.311 Cerebral infarction due to thrombosis of right middle cerebral artery (principal); G81.04 Flaccid hemiplegia affecting left nondominant side; E11.9 Type 2 diabetes mellitus without complications; R00.1 Bradycardia, unspecified; I10 Essential (primary) hypertension; E78.5 Hyperlipidemia, unspecified; I25.10 Atherosclerotic heart disease of native coronary artery without angina pectoris; M19.90 Unspecified osteoarthritis, unspecified site; Z95.1 Presence of aortocoronary bypass graft; Z79.84 Long term (current) use of oral hypoglycemic drugs; T50.995A Adverse effect of other drugs, medicaments and biological substances, initial encounter
CPT/HCPCS: 0042T; 33282; 36415; 36416; 37184; 70450; 70496; 70498; 74230; 80048; 80053; 80061; 82553; 83090; 84484; 85025; 85610; 85730; 86140; 86850; 86900; 86901; 93005; 93010; 93306; 96365; C1757; C1764; C1769; C1887; G8978-GP-CM; G8979-GP-CK; G8987-GO-CN; G8988-GO-CI; G8996-GN-CJ; G8997-GN-CI; G9162-GN-CM; G9163-GN-CM; J1644; J1650; J1885; J2001; J2370; J2704; J2997; J3010

== ENCOUNTER 2018-04-09 15:53 | Emergency (ER) | payer MEDICARE, BC ==
[2018-04-09 17:40] LABS: Bilirubin Negative (Negative); Blood, Urine Negative (Negative); Clarity CLEAR (Clear); Glucose, Urine (Dipstick) >=1000 mg/dL (Negative); Leukocyte Negative (Negative); Nitrite Negative (Negative); Protein, Urine (Dipstick) Negative (Neg-Trace); Specific Gravity, Urine 1.037 (1.002-1.036); Urobilinogen 0.2 mg/dL (0.2-1.0); pH, Urine 5.5 (5.0-9.0)
== END 2018-04-09 20:10 | disposition home or self-care (01) ==
LOC: ERS 15:53
DX: R33.9 Retention of urine, unspecified (principal); I25.10 Atherosclerotic heart disease of native coronary artery without angina pectoris; I25.2 Old myocardial infarction; E11.9 Type 2 diabetes mellitus without complications; E78.5 Hyperlipidemia, unspecified; E78.2 Mixed hyperlipidemia; I10 Essential (primary) hypertension; Z79.899 Other long term (current) drug therapy; Z79.84 Long term (current) use of oral hypoglycemic drugs
CPT/HCPCS: 51703; 81003

== ENCOUNTER 2018-09-21 07:52 | Observation (INO) | payer MEDICARE, BC ==
[2018-09-21 08:17] LABS: #Eosinphils 0.1 thou/uL (0.0-0.7); #Lymphocytes 1.9 thou/uL (1.20-3.40); #Monocytes 0.5 thou/uL (0.11-0.59); #Neutrophils 3.7 thou/uL (1.40-6.50); %Basophils 0.3 % (0.0-1.0); %Eosinophils 1.2 % (0.0-10.0); %Lymphocytes 30.6 % (21.0-51.0); %Monocytes 8.3 % (0.0-10.0); %Neutrophils 59.6 % (42.0-75.0); Hemoglobin 14.8 g/dL (14.0-18.0); Mean Corpuscular HGB CONC 31.4 g/dL (32.0-36.0); Mean Corpuscular Hemoglobin 30.2 pg (27.0-31.0); Mean Corpuscular Volume 96.2 fL (78.0-98.0); Mean Platelet Volume 8.5 fL (7.4-10.4); Platelet Count 226 thou/uL (130-400); RBC Distribution Width 11.9 % (11.5-14.5); White Blood Cell (WBC) Count 6.2 thou/uL (4.8-10.8)
[2018-09-21 08:36] LABS: ALT (SGPT) 12 U/L (8-55); AST (SGOT) 11 U/L (5-34); Albumin 4.2 g/dL (3.4-4.8); Alkaline Phosphatase 91 U/L (40-150); Anion Gap 10 mmol/L (10-20); BUN (Urea Nitrogen) 11 mg/dL (8.4-25.7); Bilirubin, Total 1.2 mg/dL (0.2-1.2); Calc. Creatinine Clearance 0 mL/min (70-130); Calcium 10.5 mg/dL (7.8-10.44); Carbon Dioxide 28 mmol/L (23-31); Chloride 105 mmol/L (98-107); Estimated GFR-MDRD 89; Globulin 2.3 g/dL (2.4-3.5); Glucose 160 mg/dL (83-110); Potassium 4.6 mmol/L (3.5-5.1); Protein, Total 6.5 g/dL (5.8-8.1); Sodium 138 mmol/L (136-145)
--- NOTE | 2018-09-21 10:17 | CT ---
CT OF THE ABDOMEN AND PELVIS: Date: 09/21/18 PROVIDED CLINICAL HISTORY: Hematochezia, recent colonoscopy. FINDINGS: Comparison made with the examination dated 08/22/18 from [facility]. The visualized lung bases are free of significant opacity. There is continued marked distention of the gallbladder. This measures about 13.8 cm in craniocaudal dimension and about 7.6 cm in transverse dimension. There is no intrahepatic biliary ductal dilatatio n evident. There is no dilatation of the pancreatic duct. No distention of the common duct is apparen t. The liver, spleen, pancreas, kidneys, and adrenal glands demonstrate a stable CT appearance. There is no bowel dilatation, free fluid, or free air apparent. No definite localized inflammatory fa t stranding. The osseous structures demonstrate no concerning osteoblastic or osteolytic lesions. IMPRESSION: 1. Marked distention of the gallbladder is redemonstrated. Gallbladder hydrops should be considered. 2. No additional evidence for an acute process. POS: [facility]
[2018-09-21] MEDS ORDERED: GoLYTELY 4,000 ml Bottle PO SCH ×2 (11:15→11:30)
[2018-09-21 11:28] VITALS: BMI 20.9
[2018-09-21] MEDS ORDERED: Sodium Chloride 0.9% 1,000 ML IV SCH (11:30)
--- NOTE | 2018-09-21 11:40 | CON ---
DATE OF CONSULTATION: 09/21/2018 CHIEF COMPLAINT: Blood in the stool. HISTORY OF PRESENT ILLNESS: Mr. Carreno is a 73-year-old man, who underwent colonoscopy this past on 09/17/[address] Han for evaluation of weight loss. Patient reports that 4 polyps were removed, one of them was larger and had to be removed piecemeal. He had an EGD that was unremarkabl e per patient report. Patient has been on Eliquis. He restarted his Eliquis on following t he procedure. He did fine for the next several days; however, this morning, after taking his morning meds including the Eliquis, he developed red blood with a bowel movement at 07:30 this morning. He has mostly brown stool mixed with a fair amount of red bloody stool that turned the water red. He puckett d red blood on toilet paper. He has only had 1 episode of the hematochezia so far. He has had no ab dominal pain, no diarrhea, no constipation, no fever or chest pain. He has lost 50 pounds since he h ad a stroke in December. Upper and lower endoscopy was planned to evaluate that further. PAST MEDICAL HISTORY: Stroke, coronary artery disease, diabetes mellitus, hyperlipidemia, hypertensi on, BPH. PAST SURGICAL HISTORY: Coronary artery bypass graft. FAMILY HISTORY: Negative for GI malignancy. SOCIAL HISTORY: Quit smoking 25 years ago. He quit alcohol a year ago. No drugs. ALLERGIES: No known drug allergies. MEDICATIONS: Metformin, lisinopril, niacin, Eliquis, aspirin, atorvastatin, carvedilol, tamsulosin, finasteride. Again, he did take his Eliquis this morning and his aspirin this morning. REVIEW OF SYSTEMS: Negative x10 systems reviewed except as stated in the history of present illness. PHYSICAL EXAMINATION: VITAL SIGNS: Pulse 81, oxygen saturation 98% on room air, temperature 97.5, blood pressure 124/75. GENERAL: He is in no acute distress, alert and oriented x3. HEENT: Eyes have no scleral icterus. Oropharynx is clear, without lesions. NECK: No cervical or supraclavicular lymphadenopathy. LUNGS: Clear to auscultation bilaterally. HEART: Regular rate and rhythm without murmur. ABDOMEN: Soft, nontender, nondistended. Bowel sounds are present. EXTREMITIES: No lower extremity edema. RECTAL EXAM: Reveals dark red blood in the rectal vault by digital exam. This is not a large amount . There is no solid stool in the rectal vault. LABORATORY DATA: White blood cell count 6.2, hemoglobin is 14.8, platelets 226, creatinine 0.85, jason irubin 1.2, AST 11, ALT 12, albumin 4.2. IMAGING: He had a CT scan of the abdomen and pelvis performed in the emergency room, which showed ma rked distention of the gallbladder. The CT was, otherwise, negative. He has seen Dr. Page about th e enlarged gallbladder before, and given lack of stones and lack of abdominal pain with that, no inte rvention has been recommended. IMPRESSION: 1. Post-polypectomy hemorrhage. His hemoglobin is normal at 14.8. He has only had 1 episode of hem atochezia so far. He did have dark red blood in the rectal vault now. This may have just bled and t hen stopped after slough of the cauterized polypectomy site. However, he could have ongoing bleeding . His last dose of Eliquis was this morning. We will plan colonoscopy to evaluate the polypectomy s ite and help assess risk, for when the Eliquis can be restarted. 2. Stroke in December, now on anticoagulation. He has a history of atrial fibrillation in the past and has a loop recorder, but no recent atrial fibrillation episodes per the patient's report. 3. A 50-pound weight loss since his stroke in December. 4. Coronary artery disease. RECOMMENDATIONS: 1. We will give a bowel prep and clear liquid diet today. 2. We will plan for colonoscopy tomorrow morning. If he develops more significant overt bleeding, t hen we may proceed with colonoscopy this afternoon.
[2018-09-21] MEDS ORDERED: Ondansetron PF 4 MG/2 ML Vial IVP PRN (11:51)
[2018-09-21] MEDS ORDERED: HumaLOG 300 UNITS/3 ML VIAL SC PRN (11:51)
[2018-09-21] MEDS ORDERED: Dextrose 50% Abboject 50 ML SYRINGE SLOW IVP PRN (11:51)
[2018-09-21] MEDS ORDERED: Guaifenesin DM 100-10/5 ML UDCUP PO PRN (11:51)
[2018-09-21] MEDS ORDERED: Dextrose 5% in Water 1,000 ML IV PRN (11:51)
--- NOTE | 2018-09-21 14:04 | HP ---
DATE OF ADMISSION: 09/21/2018 REASON FOR ADMISSION: Likely post-polypectomy bleeding. HISTORY OF PRESENT ILLNESS: The patient gives history of having had colonoscopy on Saturday by Dr. Nathan Han. He had 4 polyps removed, one was a large one and had to be taken out in small pieces per patient. This morning, the patient had a small amount of blood in the toilet and also on the tissue. The patient started back his Eliquis on . The patient and got concerned, hence came to emergency room. He has already been evaluated by Dr. Connor Melo in the ER for Gastroenterology. He has not had any further episodes of bleeding. No complaints of abdominal pain, nausea or vomiting. No complaints of chest pain, palpitation, PND or orthopnea. 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 Had a loop recorder placed then. Diabetes mellitus type 2, dyslipidemia, prior history of coronary artery disease with stent, CABG done in 1994 for 3-vessel disease. CURRENT MEDICATIONS: The patient is on metformin extended release 1000 mg p.o. twice daily, lisinopril 20 mg daily, Niacin 500 mg p.o. daily, Eliquis 5 mg p.o. twice daily, aspirin 81 mg p.o. daily, atorvastatin 40 mg p.o. at bedtime, Coreg 3.125 mg p.o. twice daily, Flomax 0.4 mg p.o. daily, finasteride 5 mg p.o. daily. ALLERGIES: No known drug allergies. PERSONAL HISTORY: Does not abuse alcohol or drugs. No history of smoking. FAMILY HISTORY: Mother at the age of 85 years. She has had a history of stroke. Father at the age of 53 years. He has had massive SC. REVIEW OF SYSTEMS: The following complete review of systems was negative, unless otherwise mentioned in the HPI or below: Constitutional: Weight loss or gain, ability to conduct usual activities. Skin: Rash, itching. Eyes: Double vision, pain. ENT/Mouth: Nose bleeding, neck stiffness, pain, tenderness. Cardiovascular: Palpitations, dyspnea on exertion, orthopnea. Respiratory: Shortness of breath, wheezing, cough, hemoptysis, fever or night sweats. Gastrointestinal: Poor appetite, abdominal pain, heartburn, nausea, vomiting, constipation, or diarrhea. Genitourinary: Urgency, frequency, dysuria, nocturia. Musculoskeletal: Pain, swelling. Neurologic/Psychiatric: Anxiety, depression. Allergy/Immunologic: Skin rash, bleeding tendency. CODE STATUS: Full. Power of employee benefits attorney is his . PHYSICAL EXAMINATION: GENERAL: The patient is a 73-year-old male who is currently not in any acute distress. VITAL SIGNS: Blood pressure 150/70, pulse 60 per minute, respiratory rate 20 per minute, temperature 97.5 degrees Fahrenheit, saturating 98% on room air. NECK: Supple. No elevated JVD. HEENT: Extraocular muscles intact. Pupils reacting to light. Oral cavity, mucous membranes are moist. No exudates or congestion. CARDIOVASCULAR: S1, S2 heard. Regular rhythm. RESPIRATORY: Air entry 1+ bilaterally. No rales or rhonchi. ABDOMEN: Soft. Bowel sounds heard. No tenderness, rigidity or guarding. EXTREMITIES: No peripheral edema or calf tenderness. VASCULAR SYSTEM: Peripheral pulses 1+ bilateral. No ischemic ulcerations or gangrene. CENTRAL NERVOUS SYSTEM: No gross focal deficits noted. The patient is alert and oriented well. PSYCHIATRIC: The patient's mood is euthymic. No hallucinations or delusions. LABORATORY AND X-RAY FINDINGS: H and H 14 and 47, platelet count 226,000, white count of 6.2, MCV is 96. Electrolytes are stable. BUN 11, creatinine 0.8 , serum glucose 160. Liver enzymes are within normal limits. Albumin 4.2. CT abdomen and pelvis done shows marked distention of gallbladder, likely hydrops. No other acute process seen. CLINICAL IMPRESSION AND PLAN: The patient will be under observation on medical floor for post-polypectomy bleeding. He will be placed on clear liquid diet. The patient likely will have colonoscopy done in the morning for a relook. His Eliquis will be held and aspirin as well for now. The patient has had a history of cerebrovascular accident in December and was placed on Eliquis then after discovering atrial fibrillation at the rehabilitation. He is otherwise hemodynamically stable now. His hemoglobin is stable. We will check a hematocrit this evening and the CBC in the morning as well. We will continue Lipitor, Coreg, finasteride, lisinopril, metformin and Flomax for now. If the patient has significant bleeding, we will switch him over to inpatient status. [facility] HEALTH SYSTEMGiuseppe
[2018-09-21] MEDS ORDERED: ISOVUE-370 76%-LOCM 1 ML ONE (16:52)
[2018-09-21] MEDS: metFORMIN XR 500 MG TAB PO SCH (16:56)
[2018-09-21] MEDS: Carvedilol 3.125 MG TAB PO SCH (16:56)
[2018-09-21] MEDS: Acetaminophen 325 MG TAB PO PRN (17:25)
[2018-09-21] MEDS: Sodium Chloride 0.9% 1,000 ML IV SCH (18:10)
[2018-09-21] MEDS: Famotidine 20 MG TAB PO SCH (20:19)
[2018-09-21] MEDS ORDERED: Atorvastatin Calcium 40 MG TAB PO SCH (21:00)
[2018-09-22] MEDS: Acetaminophen 325 MG TAB PO PRN (04:08)
[2018-09-22 04:14] LABS: #Eosinphils 0.1 thou/uL (0.0-0.7); #Lymphocytes 1.7 thou/uL (1.20-3.40); #Monocytes 0.4 thou/uL (0.11-0.59); #Neutrophils 2.6 thou/uL (1.40-6.50); %Basophils 0.7 % (0.0-1.0); %Eosinophils 1.5 % (0.0-10.0); %Lymphocytes 35.5 % (21.0-51.0); %Monocytes 8.5 % (0.0-10.0); %Neutrophils 53.9 % (42.0-75.0); Hemoglobin 13.2 g/dL (14.0-18.0); Mean Corpuscular HGB CONC 32.7 g/dL (32.0-36.0); Mean Corpuscular Hemoglobin 31.1 pg (27.0-31.0); Mean Corpuscular Volume 95.2 fL (78.0-98.0); Mean Platelet Volume 8.9 fL (7.4-10.4); Platelet Count 186 thou/uL (130-400); RBC Distribution Width 11.7 % (11.5-14.5); Red Blood Cell (RBC) Count 4.24 mill/uL (4.70-6.10); White Blood Cell (WBC) Count 4.8 thou/uL (4.8-10.8)
[2018-09-22 04:28] VITALS: TEMP 97.6
[2018-09-22 04:29] LABS: Anion Gap 10 mmol/L (10-20); BUN (Urea Nitrogen) 6 mg/dL (8.4-25.7); Calc. Creatinine Clearance 101 mL/min (70-130); Calcium 9.8 mg/dL (7.8-10.44); Carbon Dioxide 25 mmol/L (23-31); Chloride 110 mmol/L (98-107); Estimated GFR-MDRD Greater than 90; Glucose 101 mg/dL (83-110); Sodium 141 mmol/L (136-145)
[2018-09-22] MEDS: Sodium Chloride 0.9% 1,000 ML IV SCH (05:25)
[2018-09-22] MEDS ORDERED: Lisinopril 20 MG TAB PO SCH (09:00)
[2018-09-22] MEDS ORDERED: Finasteride 5 MG TAB PO SCH (09:00)
[2018-09-22] MEDS ORDERED: Tamsulosin HCl 0.4 MG CAP PO SCH (09:00)
--- NOTE | 2018-09-22 11:33 | OP ---
DATE OF PROCEDURE: 09/22/2018 PROCEDURE: Colonoscopy with control of hemorrhage. PREOPERATIVE DIAGNOSES: Hematochezia and lower gastrointestinal bleed, status post polypectomy on . PROCEDURE IN DETAIL: Informed consent was obtained from the patient. He was sedated with total intr avenous anesthesia. The rectal exam was performed and was normal. The preparation quality was good. The colonoscope was advanced with difficulty to the cecum. The ileocecal valve and appendiceal cherrie fice were clearly identified. There was red blood staining in the rectum; however, the remainder of the proximal colon washed clear with the prep. The polypectomy ulcer in the cecum had a clean white base with no stigmata of recent bleeding. There were 2 polypectomy ulcers in the sigmoid colon which had adherent clot and no active bleeding. Single Hemoclip was placed over each polypectomy ulcer. There was a third polypectomy ulcer in the sigmoid which had a clean white base and was left alone. The rectum was otherwise unremarkable including retroflexed views. There were sigmoid diverticulosis present. IMPRESSION: 1. Polypectomy ulcer in the cecum with a clean white base, left alone. 2. Two polypectomy ulcers in the sigmoid colon with adherent clot that washed clear with clips place d. 3. Small clean white based sigmoid polypectomy ulcer, left alone. 4. Sigmoid diverticulosis. RECOMMENDATIONS: 1. Okay to discharge home today. 2. Restart Eliquis in 2 days. 3. Repeat colonoscopy in a year with Dr. Han.
[2018-09-22] MEDS: metFORMIN XR 500 MG TAB PO SCH (11:59)
[2018-09-22] MEDS: Carvedilol 3.125 MG TAB PO SCH (11:59)
[2018-09-22] MEDS: Famotidine 20 MG TAB PO SCH (11:59)
[2018-09-22 13:11] VITALS: BP 145/65
[2018-09-22] MEDS ORDERED: PROPOFOL 200 MG/20 ML VIAL ONE (15:17)
--- NOTE | 2018-09-23 14:16 | DIS ---
DATE OF ADMISSION: 09/21/2018 DATE OF DISCHARGE: 09/22/2018 DISCHARGE DIAGNOSES: 1. Post-polypectomy hemorrhage, stable. 2. History of atrial fibrillation, stable. 3. Coronary artery disease, stable. 4. Hypertension, stable. 5. Diabetes mellitus type 2, stable. CONSULTATION: GI team, Dr. Melo. PROCEDURES: Colonoscopy, the impression showed polypectomy ulcer in the cecum with clean white base that was left alone, two polypectomy ulcers in the sigmoid colon with adherent clot but washed clear with Hemoclips placed, small clean white base sigmoid polypectomy ulcer was left alone and also sigmo id diverticulosis was noted. PERTINENT LABORATORY DATA AND X-RAY FINDINGS: WBC 4.8, RBC 4.24, hemoglobin 13.2, platelet 186. Sod ium 141, potassium 4.0, creatinine 0.70, estimated GFR greater than 90, glucose 106. CT abdomen and pelvis, there was marked distention of gallbladder with possible gallbladder hydrops, no additional e vidence for an acute process noted. HOSPITAL COURSE: Mr. Carreno is a pleasant 73-year-old female who had presented to [facility] with bloody stools post-colonoscopy polypectomy on Saturday. He had 1 large bowel movement that had a significant amount of blood noted. He was started back on his Eliquis the day after the colonoscopy. During hospital course, Dr. Connor Melo from GI was consulted for furt her evaluation. He had no further bleeding during that time, and no complaints of nausea, vomiting, diarrhea or abdominal pain. No further complaints of chest pain, palpitations or shortness of breath . He was admitted under observation for workup of bloody stool, Dr. Melo recommended a repeat colon oscopy. His hemoglobin remained stable throughout the hospital course. He had taken one dose of Radha bea the morning of 09/21/2018, therefore Dr. Melo had planned for a colonoscopy the next morning. Colonoscopy displayed polypectomy ulcer in cecum with clean white base, 2 ulcers and sigmoid colon wi th clot noticed that was washed clear and further Hemoclips were placed. Another small clean white b ase sigmoid ulcer was noted but left alone. Diverticulosis was also noted, but no further active ble eding at that time. Dr. Melo did recommend restarting Eliquis 2 days post-colonoscopy, therefore, o n 09/24/2018. He had recommended following up with Dr. Han for repeat colonoscopy in [address] Annie ordoñez determined that the patient was stable from GI standpoint and no further workup needed. He was seen and examined prior to discharge. He had no further complaints of bloody stool, he was able to t olerate a diet well without any complaints. He had denied chest pain, shortness of breath or abdomin al pain. No nausea or vomiting. He was instructed to start Eliquis in 2 days and follow up with [facility] physician in 1-2 weeks. He was recommended to follow up with Dr. Han as outpatient and re peat colonoscopy in 1 year was also recommended. He had verbalized his understanding for plan and he was deemed medically stable for discharge home on 09/22/2018. DISCHARGE MEDICATIONS: 1. Metformin 500 mg oral b.i.d. before meals. 2. Lisinopril 20 mg oral daily. 3. Atorvastatin 40 mg oral at bedtime. 4. Niacin 500 mg oral daily. 5. MiraLax 17 grams oral daily. 6. Tamsulosin HCL 0.4 mg oral daily. 7. Finasteride 5 mg oral daily. 8. Aspirin 81 mg oral daily. 9. Carvedilol 3.125 mg oral b.i.d. 10. Eliquis 5 mg oral twice daily to be started on 09/24/2018. FOLLOWUP: The patient is to follow up with his primary care physician, Dr. Moses Francisco in 1-2 weeks, he was also instructed to follow up with Dr. Han, GI, for repeat colonoscopy in 1 year. CONDITION ON DISCHARGE: Stable. ACTIVITY: As tolerated. DIET: Heart healthy. DISPOSITION: Home on 09/22/2018.
== END 2018-09-22 14:59 | disposition home or self-care (01) ==
LOC: ERS 07:52 → 2SW 10:22 → ERS 11:03
PROVIDERS: ADMIT Internal Medicine; ATTEND Internal Medicine
PROC: 0W3P8ZZ Control Bleeding in Gastrointestinal Tract, Via Natural or Artificial Opening Endoscopic (ICD-10-PCS; principal; 2018-09-21)
DX: K91.840 Postprocedural hemorrhage of a digestive system organ or structure following a digestive system procedure (principal); K57.30 Diverticulosis of large intestine without perforation or abscess without bleeding; I48.2 Chronic atrial fibrillation; E11.9 Type 2 diabetes mellitus without complications; E78.5 Hyperlipidemia, unspecified; I25.10 Atherosclerotic heart disease of native coronary artery without angina pectoris; Z86.73 Personal history of transient ischemic attack (TIA), and cerebral infarction without residual deficits; Z87.891 Personal history of nicotine dependence; Z79.01 Long term (current) use of anticoagulants; Z79.82 Long term (current) use of aspirin; Z79.84 Long term (current) use of oral hypoglycemic drugs; Z79.899 Other long term (current) drug therapy; Z95.1 Presence of aortocoronary bypass graft; Z95.5 Presence of coronary angioplasty implant and graft; Z98.890 Other specified postprocedural states
CPT/HCPCS: 45382; 74177; 80048; 80053; 82962 ×2; 85014; 85018; 85025 ×2; 86850; 86900; 86901; 96360; 96361 ×2; 99285; G0378 ×2; 36415; 36416; J2704

== ENCOUNTER 2018-10-13 13:36 | Outpatient (CLI) | payer MEDICARE, BC ==
--- NOTE | 2018-10-13 14:10 | RAD ---
TWO VIEWS OF THE CHEST: Comparison: None. History: Dyspnea. FINDINGS: Two views of the chest sows a normal sized cardiomediastinal silhouette. The patient is status post C ABG. There is a cardiac monitoring device projecting over the left chest wall. There is no evidence o f consolidation, mass, or pleural effusions. IMPRESSION: No evidence of acute cardiopulmonary disease. POS: [facility]
== END 2018-10-13 13:37 | disposition home or self-care (01) ==
LOC: RAD 13:36
PROVIDERS: ATTEND Internal Medicine Pulmonary Disease
DX: R06.00 Dyspnea, unspecified (principal)
CPT/HCPCS: 71046

== ENCOUNTER 2018-11-13 05:40 | Outpatient (CLI) | payer MEDICARE, BC ==
[2018-11-13 11:04] LABS: Hemoglobin 14.1 g/dL (14.0-18.0); Mean Corpuscular HGB CONC 32.3 g/dL (32.0-36.0); Mean Corpuscular Volume 95.9 fL (78.0-98.0); Mean Platelet Volume 8.9 fL (7.4-10.4); Platelet Count 251 thou/uL (130-400); Red Blood Cell (RBC) Count 4.54 mill/uL (4.70-6.10); White Blood Cell (WBC) Count 7.8 thou/uL (4.8-10.8)
[2018-11-13 11:10] LABS: Bilirubin Negative (Negative); Blood, Urine Negative (Negative); Clarity CLOUDY (Clear); Glucose, Urine (Dipstick) Negative (Negative); Leukocyte Negative (Negative); Nitrite Negative (Negative); Protein, Urine (Dipstick) Negative (Neg-Trace); Specific Gravity, Urine 1.026 (1.002-1.036)
[2018-11-13 11:12] LABS: INR-International Normal Ratio 1.1; PTT 32.8 SEC (22.9-36.1); Prothrombin Time 14.5 SEC (12.0-14.7)
[2018-11-13 11:13] LABS: Bacteria/HPF None Seen HPF (None Seen); Hyaline Casts/LPF 0-3 HYALINE CAST LPF (0-3 Hyaline); Pathc Cast-AUWi Flag 0.29 (0-2.49); Squamous Epithelial 0-3 HPF (0-3); WBC/HPF 0-3 HPF (0-3)
[2018-11-13 11:25] LABS: Anion Gap 11 mmol/L (10-20); BUN (Urea Nitrogen) 18 mg/dL (8.4-25.7); Calc. Creatinine Clearance 0 mL/min (70-130); Calcium 10.7 mg/dL (7.8-10.44); Carbon Dioxide 28 mmol/L (23-31); Chloride 105 mmol/L (98-107); Estimated GFR-MDRD 90; Glucose 148 mg/dL (83-110); Potassium 5.4 mmol/L (3.5-5.1); Sodium 139 mmol/L (136-145)
== END 2018-11-13 05:41 | disposition home or self-care (01) ==
LOC: LABBT 05:40
PROVIDERS: ATTEND Urology
DX: Z01.818 Encounter for other preprocedural examination (principal); N40.1 Benign prostatic hyperplasia with lower urinary tract symptoms
CPT/HCPCS: 80048; 81001; 85027; 85610; 85730; 86850; 86900; 86901; 87086; 93005; 93010

== ENCOUNTER 2018-12-11 06:42 | Observation (INO) | payer MEDICARE, BC ==
[2018-11-13 10:32] VITALS: BMI 19.9
[2018-12-11] MEDS ORDERED: Midazolam HCl 2 mg/2 ml Vial ONE (07:37)
[2018-12-11] MEDS ORDERED: Fentanyl 100 MCG/2 ML VIAL ONE (07:37)
[2018-12-11] MEDS ORDERED: Levofloxacin 500 mg/D5W 100 ml Premix Bag ONE (07:59)
[2018-12-11] MEDS ORDERED: B & O ONE (08:45)
[2018-12-11] MEDS ORDERED: hydrALAZINE 20 MG/ML VIAL SLOW IVP PRN (10:01)
[2018-12-11] MEDS ORDERED: Phenazopyridine HCl 97.5 MG TABLET PO PRN (10:01)
[2018-12-11] MEDS ORDERED: Acetaminophen 500 MG TAB PO PRN (10:01)
[2018-12-11] MEDS ORDERED: Oxybutynin 5 MG TAB PO PRN (10:01)
[2018-12-11] MEDS ORDERED: Bisacodyl 10 MG SUPP PR PRN (10:01)
[2018-12-11] MEDS ORDERED: Mag-Al 1200 mg/1200 mg/30 ML UDCUP PO PRN (10:01)
[2018-12-11] MEDS ORDERED: Ondansetron PF 4 MG/2 ML Vial IVP PRN (10:01)
[2018-12-11] MEDS ORDERED: diphenhydrAMINE 25 MG CAP PO PRN (10:01)
[2018-12-11] MEDS ORDERED: Hyoscyamine Sulfate SL 0.125 mg Tablet SL PRN (10:01)
[2018-12-11] MEDS ORDERED: traMADol HCl 50 MG TAB PO PRN (10:04)
[2018-12-11] MEDS ORDERED: Fentanyl 100 MCG/2 ML VIAL SLOW IVP PRN (10:04)
--- NOTE | 2018-12-11 10:40 | OP ---
DATE OF PROCEDURE: 12/11/2018 SERVICE: Urology. PREOPERATIVE DIAGNOSIS: Benign prostatic hyperplasia with lower urinary tract symptoms. POSTOPERATIVE DIAGNOSIS: Benign prostatic hyperplasia with lower urinary tract symptoms. PROCEDURE PERFORMED: Transurethral resection of the prostate. INDICATIONS FOR PROCEDURE: Mr. Carreno is a 73-year-old white male with BPH and severe urinary symptoms. He has a history of urinary retention along with urinary tract infections and is on maximal medical therapy with finasteride and Flomax. I recommend that he consider TURP and after discussion of risks and benefits, he has agreed to proceed forward. DESCRIPTION OF PROCEDURE: After identification of armband and verification of consent, the patient was brought back to the operating room where he underwent general anesthesia with an LMA. He was placed in dorsal lithotomy position and prepped and draped in usual sterile fashion. After appropriate time-out, a lubricated 26-Mauritian resectoscope sheath was attempted to pass into the urethra. The meatus was too narrow, so this was dilated with Meeker sounds up to 30-Mauritian without any significant trauma or bleeding. The sheath was then able to be passed in with the visual obturator with ease through the urethra into the bladder. The ureteral orifices were identified close to but not on the prostate. The visual obturator was switched out for the Gyrus bipolar resectoscope loop. Resection was started on the lateral lobes and resected until we were near, but not to the capsule. The anterior and posterior prostate were also resected all the way back to the verumontanum until circumferentially the prostate was wide open. The bladder neck was still elevated. This was relaxed using relaxing incision at 5 and 7 o'clock, taking great care to avoid injury to the ureteral orifices. Upon completion of the relaxing incisions, the ureters were well away from the prostate and unharmed. The prostate was cauterized thoroughly and any residual hypertrophic tissue that came up during the decompression of the bladder was resected away. Upon final inspection of the bladder, all prostate chips were evacuated either with the [employer] evacuator or manually with the resectoscope until there were no chips remaining. The bladder looked good with small petechiae but no major injuries and the ureters were unharmed. The prostate was cauterized thoroughly meticulously with the coag function on the resectoscope loop. Upon completion, the prostate was wide open. There was no bleeding and the bladder looked good. The bladder was left full and the resectoscope removed. A 22-Mauritian three-way Anderson catheter was passed with ease into the bladder and 30 mL of sterile water was instilled into the balloon. CBI was initiated. B and O suppository was placed in the patient's rectum. A StatLock was affixed to the patient's leg. He was then taken out of lithotomy, awakened, and taken to PACU for recovery in stable condition. COMPLICATIONS: None. ESTIMATED BLOOD LOSS: Minimal. RETAINED TUBES AND DRAINS: 22-Mauritian three-way Anderson catheter on CBI. SPECIMEN: Prostate chips. DISPOSITION: The patient will stay in the hospital overnight for CBI. He will then be have a voiding trial tomorrow and be discharged home. Job ID: [id number]
[2018-12-11 12:13] LABS: Anion Gap 13 mmol/L (10-20); BUN (Urea Nitrogen) 18 mg/dL (8.4-25.7); Calc. Creatinine Clearance 82 mL/min (70-130); Calcium 9.8 mg/dL (7.8-10.44); Carbon Dioxide 23 mmol/L (23-31); Chloride 107 mmol/L (98-107); Estimated GFR-MDRD Greater than 90; Glucose 145 mg/dL (83-110); Potassium 4.6 mmol/L (3.5-5.1); Sodium 138 mmol/L (136-145)
[2018-12-11] MEDS ORDERED: Sodium Chloride 0.9% 0 ML ONE (14:48)
[2018-12-11] MEDS ORDERED: cefTRIAXone\\ROCEPHIN 2 GM VIAL ONE (14:48)
[2018-12-11] MEDS ORDERED: PROPOFOL 200 MG/20 ML VIAL ONE (17:24)
[2018-12-11] MEDS ORDERED: PHENYLEPHRINE-NS 100 MCG/ML 10 ML SYRINGE ONE (17:24)
[2018-12-11] MEDS ORDERED: Glycopyrrolate 0.2 MG/ML 5 ML SYRINGE ONE (17:24)
[2018-12-11] MEDS ORDERED: Rocuronium Bromide 10 MG/ML (10ML VIAL) ONE (17:24)
[2018-12-11] MEDS ORDERED: ePHEDrine 50 MG/ML VIAL ONE (17:24)
[2018-12-11] MEDS ORDERED: Lidocaine 1% PF 5 ML VIAL ONE (17:24)
[2018-12-11] MEDS ORDERED: Dexamethasone 20 MG/5 ML VIAL ONE (17:24)
[2018-12-11] MEDS ORDERED: Ondansetron PF 4 MG/2 ML Vial ONE (17:24)
[2018-12-11] MEDS: metFORMIN XR 500 MG TAB PO SCH (18:03)
[2018-12-11] MEDS: Carvedilol 6.25 MG TAB PO SCH (18:03)
[2018-12-11] MEDS ORDERED: Atorvastatin Calcium 40 MG TAB PO SCH (21:00)
[2018-12-12 06:58] LABS: #Basophils 0.1 thou/uL (0.0-0.2); #Eosinphils 0.1 thou/uL (0.0-0.7); #Lymphocytes 1.9 thou/uL (1.20-3.40); #Monocytes 0.6 thou/uL (0.11-0.59); #Neutrophils 6.3 thou/uL (1.40-6.50); %Basophils 0.9 % (0.0-1.0); %Eosinophils 0.6 % (0.0-10.0); %Lymphocytes 21.1 % (21.0-51.0); %Monocytes 6.7 % (0.0-10.0); %Neutrophils 70.8 % (42.0-75.0); Hemoglobin 13.6 g/dL (14.0-18.0); Mean Corpuscular HGB CONC 33.2 g/dL (32.0-36.0); Mean Corpuscular Hemoglobin 32.5 pg (27.0-31.0); Mean Corpuscular Volume 97.7 fL (78.0-98.0); Mean Platelet Volume 8.7 fL (7.4-10.4); Platelet Count 238 thou/uL (130-400); RBC Distribution Width 11.6 % (11.5-14.5); Red Blood Cell (RBC) Count 4.19 mill/uL (4.70-6.10); White Blood Cell (WBC) Count 8.9 thou/uL (4.8-10.8)
[2018-12-12 07:16] LABS: Anion Gap 10 mmol/L (10-20); BUN (Urea Nitrogen) 16 mg/dL (8.4-25.7); Calc. Creatinine Clearance 86 mL/min (70-130); Calcium 10.3 mg/dL (7.8-10.44); Carbon Dioxide 27 mmol/L (23-31); Chloride 105 mmol/L (98-107); Estimated GFR-MDRD Greater than 90; Glucose 121 mg/dL (83-110); Potassium 4.6 mmol/L (3.5-5.1); Sodium 137 mmol/L (136-145)
[2018-12-12] MEDS: metFORMIN XR 500 MG TAB PO SCH ×2 (07:56→16:42)
[2018-12-12] MEDS ORDERED: Lisinopril 20 MG TAB PO SCH (09:00)
[2018-12-12] MEDS ORDERED: Polyethylene Glycol 3350 17 GM Packet PO SCH (09:00)
[2018-12-12] MEDS: Carvedilol 6.25 MG TAB PO SCH ×2 (09:10→16:42)
--- NOTE | 2018-12-12 16:02 | PRG ---
DATE OF SERVICE: 12/12/2018 SUBJECTIVE: The patient had a good night. No complaints. His CBI was turned off this morning. The patient underwent a void trial, but has not been able to void since then. Ultimately, he had a bladder scan which demonstrated 600 mL. He was able to void 200 mL, but had a 400 mL PVR. OBJECTIVE: VITAL SIGNS: Stable. GENERAL: No apparent distress. CARDIOVASCULAR: Regular rate and rhythm. ABDOMEN: Soft, nontender, and nondistended. : Catheter was a very light pink with the catheter in, when he voided it was a light red color. EXTREMITIES: No clubbing, cyanosis, or edema. LABORATORY EVALUATION: The full set of labs are in the [employer] system, which I have reviewed. White count is 8.9 with a hemoglobin of 13.6 and creatinine of 0.78. ASSESSMENT AND PLAN: A 73-year-old white male with BPH, status post TURP with incomplete voiding and high risk for urinary retention. I would recommend replacement of an 18-Divehi Anderson catheter with 30 mL balloon and discharge home and I will see the patient back on Saturday for a void trial. We will handle his care on an outpatient basis. He will not need to stay on Flomax or finasteride at this time and should hold his aspirin and Plavix. Full medications can be seen in the medical reconciliation on his discharge orders. Job ID: [id number]
[2018-12-12 16:08] VITALS: TEMP 97.4
[2018-12-12 16:43] VITALS: BP 128/73
--- NOTE | 2018-12-12 16:57 | DIS ---
DATE OF ADMISSION: 12/11/2018 DATE OF DISCHARGE: 12/12/2018 ADMITTING DIAGNOSIS: BPH. DISCHARGE DIAGNOSIS: BPH. PROCEDURE PERFORMED: Transurethral resection of the prostate. BRIEF HISTORY: Mr. Carreno is a 73-year-old white male, who initially presented to me with BPH and severe urinary symptoms despite being on Flomax and finasteride. He elected to proceed forward with surgical treatment of his prostate. A cardiac clearance was obtained. Full H and P can be found in the scanned portion of the x[employer]ai system. HOSPITAL COURSE: After surgery (please see operative note for details). The patient was kept in the hospital for CBI overnight. His CBI was stopped in the morning and his catheter was removed. The patient was not able to void and only voided a small amount with elevated residuals. Therefore, he had an 18-Polish catheter replaced and was sent home with his catheter. DISCHARGE INSTRUCTIONS: Include no heavy lifting. No strenuous activity. Avoid constipation. No submerging under water. Discharge medication includes holding his aspirin and Eliquis. He will stay on his regular home medications. He will no longer take tamsulosin or finasteride permanently. Followup will be on Saturday for a void trial as a nurse visit. Job ID: [id number]
== END 2018-12-12 17:35 | disposition home or self-care (01) ==
LOC: SDC 06:42 → SURG A 10:01
PROVIDERS: ADMIT Urology; ATTEND Urology
PROC: 0VT08ZZ Resection of Prostate, Via Natural or Artificial Opening Endoscopic (ICD-10-PCS; principal; 2018-12-11)
DX: N40.1 Benign prostatic hyperplasia with lower urinary tract symptoms (principal); R33.8 Other retention of urine; R39.14 Feeling of incomplete bladder emptying; N42.32 Atypical small acinar proliferation of prostate; N39.0 Urinary tract infection, site not specified; E11.9 Type 2 diabetes mellitus without complications; I10 Essential (primary) hypertension; E78.5 Hyperlipidemia, unspecified; Z86.73 Personal history of transient ischemic attack (TIA), and cerebral infarction without residual deficits; Z79.84 Long term (current) use of oral hypoglycemic drugs; Z79.899 Other long term (current) drug therapy; Z95.1 Presence of aortocoronary bypass graft
CPT/HCPCS: 51701; 52601; 80048 ×2; 82962; 85025; 88305; 88341; 88342; G0378; 36415; 36416; J0696; J1100; J1956; J2001; J2250; J2405; J2704; J3010; J3490; J7050

== ENCOUNTER 2019-03-21 13:53 | Emergency (ER) | payer MEDICARE, BC ==
[2019-03-21 14:25] LABS: #Lymphocytes 1.8 thou/uL (1.20-3.40); #Monocytes 0.5 thou/uL (0.11-0.59); #Neutrophils 5.2 thou/uL (1.40-6.50); %Eosinophils 0.6 % (0.0-10.0); %Neutrophils 68.3 % (42.0-75.0); Hemoglobin 14.2 g/dL (14.0-18.0); Mean Corpuscular HGB CONC 33.1 g/dL (32.0-36.0); Mean Corpuscular Volume 96.7 fL (78.0-98.0); Mean Platelet Volume 8.8 fL (7.4-10.4); Platelet Count 248 thou/uL (130-400); RBC Distribution Width 11.6 % (11.5-14.5); Red Blood Cell (RBC) Count 4.43 mill/uL (4.70-6.10); White Blood Cell (WBC) Count 7.7 thou/uL (4.8-10.8)
[2019-03-21 14:30] LABS: Clarity Turbid (Clear); Specific Gravity, Urine 1.025 (1.002-1.036); pH, Urine 6.6 (5.0-9.0)
[2019-03-21 14:31] LABS: Bilirubin Unable to Interpret (Negative); Blood, Urine Unable to Interpret (Negative); Glucose, Urine (Dipstick) Unable to Interpret mg/dL (Negative); Leukocyte Unable to Interpret (Negative); Nitrite Unable to Interpret (Negative); Protein, Urine (Dipstick) Unable to Interpret mg/dL (Neg-Trace); Urobilinogen UNABLE TO INTERPRET mg/dL (0.2-1.0)
[2019-03-21 14:31] LABS: INR-International Normal Ratio 1.1; PTT 30.6 SEC (22.9-36.1); Prothrombin Time 14.5 SEC (12.0-14.7)
[2019-03-21 14:32] LABS: RBC/HPF GREATER THAN 50-TNTC HPF (0-3)
[2019-03-21 14:33] LABS: Bacteria/HPF 2+ HPF (None Seen); Hyaline Casts/LPF NONE SEEN LPF (0-3 Hyaline); Squamous Epithelial 0-3 HPF (0-3)
[2019-03-21 14:46] LABS: ALT (SGPT) 19 U/L (8-55); AST (SGOT) 16 U/L (5-34); Albumin 4.1 g/dL (3.4-4.8); Alkaline Phosphatase 116 U/L (40-150); Anion Gap 10 mmol/L (10-20); BUN (Urea Nitrogen) 17 mg/dL (8.4-25.7); Calc. Creatinine Clearance 0 mL/min (70-130); Calcium 10.3 mg/dL (7.8-10.44); Carbon Dioxide 29 mmol/L (23-31); Chloride 107 mmol/L (98-107); Estimated GFR-MDRD 78; Globulin 2.5 g/dL (2.4-3.5); Glucose 173 mg/dL (83-110); Potassium 4.9 mmol/L (3.5-5.1); Protein, Total 6.6 g/dL (5.8-8.1); Sodium 141 mmol/L (136-145)
== END 2019-03-21 18:30 | disposition home or self-care (01) ==
LOC: ERS 13:53
DX: R31.9 Hematuria, unspecified (principal); I25.10 Atherosclerotic heart disease of native coronary artery without angina pectoris; I25.2 Old myocardial infarction; E11.9 Type 2 diabetes mellitus without complications; E78.5 Hyperlipidemia, unspecified; E78.2 Mixed hyperlipidemia; I10 Essential (primary) hypertension; N40.0 Benign prostatic hyperplasia without lower urinary tract symptoms; I48.91 Unspecified atrial fibrillation; Z79.899 Other long term (current) drug therapy; Z79.82 Long term (current) use of aspirin; Z79.84 Long term (current) use of oral hypoglycemic drugs; Z79.01 Long term (current) use of anticoagulants
CPT/HCPCS: 36415; 80053; 81003; 81015; 85025; 85610; 85730; 87086; 99283

== ENCOUNTER 2019-04-03 12:56 | Outpatient (CLI) | payer MEDICARE, BC ==
--- NOTE | 2019-04-03 15:12 | CT ---
CT ABDOMEN AND PELVIS WITH AND WITHOUT CONTRAST: Date: 04/03/19 Multiple axial tomograms obtained through abdomen and pelvis pre and post IV contrast. Postcontrast e xam performed in portal venous and delayed venous phase following urogram protocol. INDICATION: Hematuria. Comparison made to CT abdomen and pelvis 09/21/18. FINDINGS: Lung bases appear clear. There are calcified hilar lymph nodes again noted. On the noncontrast study, the urinary tract shows no evidence of hydronephrosis. There is no evidence of urinary tract calculus. On the postcontrast exam, both kidneys show equal enhancement and function. A cyst from the lateral l eft kidney measuring 3.7 cm is stable. There is a smaller cyst anterior left renal cortex measuring a pproximately 0.8 cm, which is stable. No enhancing mass identified in either kidney. On the delayed study, there is contrast opacification of the collecting structures. Bilateral collect ing structures are unremarkable. The urinary bladder is mildly distended. There is prominence of the urethral orifice within the bladd er and there is mild dilatation of the prostatic urethra just beyond the orifice. There are numerous calcifications within this portion of the prostatic urethra, the largest measuring up to 8 mm. These calcifications were not present on the CT of 09/21/18 and indicate new calcifications within the pros tatic urethra since that time. The more distal prostatic urethra appears normal and not visualized. P enile urethra is not delineated. Soft tissue evaluation of the abdomen and pelvis again reveals distended gallbladder. This has been d escribed on prior studies and is unchanged in appearance and has been described as gallbladder hydrop s on prior studies. Liver, spleen, and pancreas are unremarkable. Splenic granulomatous calcifications again noted. Adrenal glands unremarkable. Small bowel loops normal caliber. Aorta shows atherosclerotic calcification, but is normal caliber. C olon unremarkable. Degenerative spine changes. IMPRESSION: 1. Dilatation of the prostatic urethra just beyond the bladder orifice. There are numerous calcifica tions within this portion of the prostatic urethra as described above. These calcifications are new w hen compared to the exam of 09/21/18. 2. Urinary tract is otherwise unremarkable and stable from prior exam with renal cystic lesions agai n noted as described. 3. Gallbladder distention is again seen and has been previously described. This is stable in appeara nce. POS: [facility]
== END 2019-04-03 12:57 | disposition home or self-care (01) ==
LOC: BICCT 12:56
PROVIDERS: ATTEND Urology
DX: R31.0 Gross hematuria (principal); N42.89 Other specified disorders of prostate; K82.8 Other specified diseases of gallbladder; N36.8 Other specified disorders of urethra
CPT/HCPCS: 74178

== ENCOUNTER 2019-04-15 10:15 | Outpatient (CLI) | payer MEDICARE, BC ==
--- NOTE | 2019-04-15 10:33 | RAD ---
EXAM: Chest 2 views: HISTORY: Dyspnea COMPARISON: 10/13/2018 FINDINGS: Postop midline sternotomy. Left loop recorder. Heart size:Within normal limits. Lungs:Clear of acute process. Atherosclerotic changes of the aorta. No confluent pneumonia, overt edema, pleural effusion, pneumothorax, or other significant acute proce ss. IMPRESSION: Stable exam. Atherosclerosis of the aorta. No acute intrathoracic disease.
== END 2019-04-15 10:16 | disposition home or self-care (01) ==
LOC: RAD 10:15
PROVIDERS: ATTEND Family Medicine
DX: R06.00 Dyspnea, unspecified (principal); I70.0 Atherosclerosis of aorta
CPT/HCPCS: 71046

== ENCOUNTER 2019-06-09 09:17 | Outpatient (CLI) | payer MEDICARE, BC ==
[2019-06-09 10:44] LABS: Estimated GFR-MDRD - POC Greater than 90
--- NOTE | 2019-06-09 11:59 | MRI ---
MRI PELVIS AND PROSTATE WITH AND WITHOUT CONTRAST: HISTORY: Atypical, small acinar proliferation from a prostate biopsy. COMPARISON: None. TECHNIQUE: Multiplanar, multisequence MR images were obtained of the prostate with and without IV contrast. FINDINGS: There is moderate hypertrophy of the central gland, consistent with BPH. There is a TURP defect. No low T2 signal lesion is seen in the prostate. No restricted diffusion or low signal on the ADC map is seen in the peripheral zone of the prostate. The posterior aspect of the peripheral zone has limi [place] evaluation secondary to an air bubble in the patient's rectum. No abnormal enhancement is apprec iated. The seminal vesicles are small. The neurovascular bundles are intact. No pelvic adenopathy is seen. No marrow signal abnormality is present. IMPRESSION: PI-RADS category 2-Low likelihood that a clinically significant cancer is present. POS: CET
== END 2019-06-09 09:18 | disposition home or self-care (01) ==
LOC: TBSIIMAG 09:17
PROVIDERS: ATTEND Urology
DX: N42.32 Atypical small acinar proliferation of prostate (principal)
CPT/HCPCS: 72197; 82565

== ENCOUNTER 2020-04-12 10:56 | Outpatient (CLI) | payer MEDICARE, BC ==
--- NOTE | 2020-04-12 14:17 | RAD ---
PA AND LATERAL CHEST: 04/12/20 HISTORY: Dyspnea. Heart size is within normal limits. There are atherosclerotic changes of the aorta. Postop sternotomy changes are noted. The lungs show some mild chronic change. A loop recorder device is present. In comparison to a 04/15/19 study, the chest is stable. IMPRESSION: Stable exam. POS: JANNA
== END 2020-04-12 10:57 | disposition home or self-care (01) ==
LOC: BICRAD 10:56
PROVIDERS: ATTEND Internal Medicine Pulmonary Disease
DX: R06.00 Dyspnea, unspecified (principal)
CPT/HCPCS: 71046

== ENCOUNTER 2024-12-09 09:20 | Outpatient (CLI) | payer MEDICARE, BC ==
[2024-12-09] MEDS ORDERED: Iopamidol 370 76% 100 ML VIAL ONE (10:55)
== END 2024-12-09 09:21 | disposition home or self-care (01) ==
LOC: BICCT 09:20
PROVIDERS: ATTEND Urology
DX: R31.0 Gross hematuria (principal); N20.0 Calculus of kidney; N28.1 Cyst of kidney, acquired; K82.8 Other specified diseases of gallbladder; N40.0 Benign prostatic hyperplasia without lower urinary tract symptoms
CPT/HCPCS: 36415; 74178; 82565